=== PATIENT | female | born 1980 | race Caucasian/White ===

== ENCOUNTER 2021-10-12 08:02 | Outpatient (CLI) | payer OTHER, SELFPAY | END 2021-10-12 08:03 | disposition home or self-care (01) | LOC: ANHAUDIO 08:04 | PROVIDERS: Visit Provider Nurse Practitioner Family | DX: H93.19 Tinnitus, unspecified ear (principal); R42 Dizziness and giddiness | CPT/HCPCS: 92540; 92546; 92557; 92567 ==

== ENCOUNTER 2022-01-28 10:59 | Outpatient (RCR) | payer OTHER, SELFPAY | END 2022-01-28 23:59 | disposition home or self-care (01) | LOC: ANHAUDIO 10:59 | DX: Z46.1 Encounter for fitting and adjustment of hearing aid (principal) | CPT/HCPCS: V5160; V5261 ==

== ENCOUNTER 2024-02-21 11:03 | Outpatient (CLI) | payer MEDICAID, SELFPAY ==
--- NOTE | ~2024-02-21 | XR_ITS ---
XR_CERV2-3V_CR DATE: 02/21/2024 11:39 INDICATION: Chronic neck and back pain. Heavy smoker. TECHNIQUE: AP, open-mouth, lateral views COMPARISON: None FINDINGS: There is mild loss of height at the C5-6 interspace. Remaining cervical interspaces are rel atively preserved. C1 and C2 are normally aligned and the odontoid process is intact. No fracture or dislocation or lock ed facet or prevertebral soft tissue swelling is noted. IMPRESSION: Mild degenerative changes C5-6 Reviewed, dictated and finalized at Location [facility]. Reviewed, dictated and finalized at location A.
--- NOTE | ~2024-02-21 | XR_ITS ---
XR lumbar spine 2-3V DATE: 02/21/2024 11:39 INDICATION: Chronic back pain. Heavy smoker. TECHNIQUE: AP, lateral, coned lateral lumbosacral views COMPARISON: None FINDINGS: No fracture or dislocation or bone destruction. Included lower thoracic and lumbar pedicles are intact. Lumbar and lumbosacral interspaces are well preserved. The sacroiliac joints are intact. IMPRESSION: Negative Reviewed, dictated and finalized at location A. IMPRESSION: Negative
--- NOTE | ~2024-02-21 | XR_ITS ---
XR thoracic spine 3V DATE: 02/21/2024 11:38 INDICATION: Chronic back pain. Heavy smoker. TECHNIQUE: AP, lateral, swimmer views COMPARISON: None FINDINGS: There is slight levoscoliosis of the upper thoracic spine. Likely chronic very mild anterior wedge compression fractures of T6, T7 and T9 are noted. No paraspin al soft tissue thickening is evident. The thoracic pedicles are intact. No bone destruction is noted. IMPRESSION: Mild likely chronic mild anterior wedge compression fracture deformities of T6, T7 and T9 Reviewed, dictated and finalized at location A. IMPRESSION: Mild likely chronic mild anterior wedge compression fracture deform ities of T6, T7 and T9
--- NOTE | ~2024-02-21 | XR_ITS ---
XR chest 2V DATE: 02/21/2024 11:39 INDICATION: Chronic back, neck pain. Heavy smoker. TECHNIQUE: PA and lateral views COMPARISON: None FINDINGS: Normal heart size. No hilar or mediastinal enlargement. No pulmonary infiltrate or consolid ation, pleural effusion or pulmonary vascular congestion or pneumothorax. Included skeletal structure s are unremarkable. IMPRESSION: No active cardiopulmonary disease Reviewed, dictated and finalized at location A.
[2024-02-21 12:59] LABS: Hematocrit 44.7 % (37.0-47.0); Hemoglobin 14.5 g/dL (12.0-15.0); Mean Corpuscular HGB Conc 32.4 g/dl (32-36); Mean Corpuscular Hemoglobin 30.3 pg (26-34); Mean Corpuscular Volume 93.5 fl (80-100); Mean Platelet Volume 10.5 fl (7.4-10.4); Platelet Count Result 249 k/mm3 (150-375); Red Blood Count 4.78 M/mm3 (4.2-5.4); Red Cell Distribution Width 13.2 % (11.5-14.5); White Blood Count 6.1 K/mm3 (4.5-10.0)
[2024-02-21 13:03] LABS: Appearance Urine Clear (Clear); Bilirubin Urine Negative (Negative); Blood Urine Negative (Negative); Color Urine Yellow (Yellow); Glucose Urine UA Negative (Negative); Ketones Urine Negative (Negative); Leukocyte Esterase Ur Negative LEU/UL (Negative); Nitrate Urine Negative (Negative); Protein Urine Negative (Negative); Specific Grav Ur 1.022 (1.001-1.035)
[2024-02-21 13:05] LABS: Add Urine Microscopic? NO
[2024-02-21 13:19] LABS: Alanine Aminotransferase 16 U/L (6-35); Albumin Level 3.7 g/dL (3.5-5.1); Alkaline Phosphatase 94 U/L (38-126); Anion Gap 2 mmol/L (4-12); Aspartate Amino Transferase 18 U/L (14-36); Bilirubin,Total 0.3 mg/dL (0.2-1.3); Blood Urea Nitrogen 9 mg/dL (7-17); Calcium 8.6 mg/dL (8.4-10.2); Carbon Dioxide 28 mmol/L (22-30); Chloride 108 mmol/L (98-107); Cholesterol 190 mg/dL (0-200); Estimated Glomerular Filt Rate > 60; Glucose 97 mg/dL (65-110); HDL Direct 42 mg/dL; Sodium 138 mmol/L (137-145); Triglycerides 74 mg/dL (<150)
[2024-02-21 13:22] LABS: Rheumatoid Factor < 12.0 IU/ML (<12)
[2024-02-21 13:30] LABS: Erythrocyte Sedimentation Rate 13 mm/hr (0-20); LDL Cholesterol Direct 141 mg/dL
[2024-02-21 13:35] LABS: Hemoglobin A1C 5.3 % (<5.7)
[2024-02-21 13:40] LABS: Creatinine Urine 176.7 mg/dL
[2024-02-21 13:52] LABS: MALB Creatinine Ratio 4.1 mg/g (0-30); Microalbumin Urine Random 7.3 mg/L (0-16.7)
[2024-02-21 13:54] LABS: Free T4 Free Thyroxine 1.21 ng/mL (0.78-2.19); Vitamin D 25 Hydroxy 29.6 ng/mL
[2024-02-24 00:14] LABS: H pylori, Urea Breath NOT DETECTED (NOT DETECTED)
== END 2024-02-21 11:04 | disposition home or self-care (01) ==
LOC: ANHIMG 11:08
PROVIDERS: PCP Emergency Medicine; Visit Provider Emergency Medicine
DX: K21.00 Gastro-esophageal reflux disease with esophagitis, without bleeding (principal); R10.13 Epigastric pain; F41.9 Anxiety disorder, unspecified; R10.9 Unspecified abdominal pain; M54.2 Cervicalgia; K51.90 Ulcerative colitis, unspecified, without complications; M48.54XA Collapsed vertebra, not elsewhere classified, thoracic region, initial encounter for fracture
CPT/HCPCS: 36415; 71046; 72040; 72072; 72100; 80053; 80061; 81003; 82043; 82306; 83013; 83036; 84439; 84443; 85027; 85652; 86038; 86430

== ENCOUNTER 2024-03-05 14:02 | Outpatient (CLI) | payer MEDICAID, SELFPAY ==
--- NOTE | ~2024-03-05 | MR_ITS ---
EXAMINATION: MR thoracic spine wo/w con DATE: 03/05/2024 15:53 INDICATION: Malignant neoplasm of the left kidney with chronic back pain TECHNIQUE: Magnetic resonance imaging (MRI) of the thoracic spine was performed without and with 17 m L Multihance intravenous contrast. Sagittal localizer T1-weighted FSE of the cervicothoracic spine wa s obtained. Thoracic spine sequences included sagittal T2-weighted FSE, sagittal T1-weighted SE, Sagi ttal T2-weighted FS FSE, and axial T2-weighted FSE. COMPARISON: None FINDINGS: Alignment is normal.Chronic compression fractures with mild anterior wedging at T6,T9 and minimally a t T7. 8 mm T1 and T2 hyperintense hemangioma at the right posterior aspect of the T2 vertebral body. Otherwise normal marrow signal. Mild disc height loss at T3-T4 through T5-T6 and at T8-T9. Discs do n ot extend beyond the endplate margins. There is a T2 hyperintense, T1 hypointense and 20 intravenousl y enhancing extradural lesion along the left posterior side of the central canal which extends 4.0 cm craniocaudally from the level of the inferior pedicle margin at T4 to the inferior pedicle margin of T6 and which measures up to 1.9 x 0.5 cm in maximal orthogonal dimensions. No surrounding inflammato ry changes. There is normal spinal cord signal with no abnormally enhancing cord lesions. The conus t erminates at L1-L2. A few nonenhancing likely cysts in the partially visualized bilateral kidneys. IMPRESSION: 1. Mild thoracic spondylosis with chronic T6, T7 and T9 compression fractures. 2. Nonspecific enhancing extradural lesion at the left posterior central canal at T4-T6 contributing to mild central canal stenosis. Most likely differential would include extradural spinal cavernous ma lformation, epidural angiolipoma, spinal meningioma, spinal schwannoma lymphoma and metastatic diseas e. Reviewed, dictated and finalized at location B. IMPRESSION: 1. Mild thoracic spondylosis with chronic T6, T7 and T9 compression fractures. 2. Nonspecific enhancing extradural lesion at the left posterior central canal at T4-T6 contributing to mild central canal stenosis. Most likely differential would include extradural spinal cavernous malformation, epidural angiolipoma, s lucas meningioma, spinal schwannoma lymphoma and metastatic disease.
== END 2024-03-05 14:03 | disposition home or self-care (01) ==
PROVIDERS: PCP Emergency Medicine; Visit Provider Internal Medicine Hematology & Oncology
DX: C64.2 Malignant neoplasm of left kidney, except renal pelvis (principal); M43.04 Spondylolysis, thoracic region; S22.060A Wedge compression fracture of T7-T8 vertebra, initial encounter for closed fracture; X58.XXXA Exposure to other specified factors, initial encounter
CPT/HCPCS: 72157; A9577

== ENCOUNTER 2024-03-09 07:20 | Outpatient (CLI) | payer MEDICAID, SELFPAY ==
--- NOTE | ~2024-03-09 | PE_ITS ---
EXAMINATION: PET skull to mid thigh DATE: 03/09/2024 09:30 INDICATION: Malignant neoplasm of the left kidney. Spine mass. TECHNIQUE: Blood glucose level was 100 mg/dL. 9.462 mCi of 18-fluorodeoxyglucose (18-FDG) was adminis tered i.v. Low dose computed tomography (CT) images were acquired from the base of the brain to the p roximal thighs for attenuation correction and anatomic localization. Automated exposure control was e mployed. Dose-length product (DLP) was 1181 mGy-cm. Positron emission tomography (PET) images were ac quired in the same distribution. COMPARISON: Thoracic spine MRI 03/05/2024 FINDINGS: Head/neck: There are no pathologically enlarged lymph nodes. Chest: There is a pneumatocele in right lower lobe. No pleural effusion. The heart size is normal. No pericardial effusion. There are no pathologically enlarged lymph nodes. There is no abnormal activit y in the area of the epidural enhancement seen by MRI from T4 to T6. Abdomen/pelvis/proximal thighs: The liver, spleen, pancreas, adrenal glands, and right kidney are nor mal. There are changes of partial left nephrectomy. There are no dilated loops of bowel. The appendix is normal. There is diverticulosis of the colon without evidence of diverticulitis. There are no pat hologically enlarged lymph nodes. There is no free intraperitoneal fluid. IMPRESSION: 1. No PET/CT abnormality in the area of the epidural enhancement seen by MRI from T4 to T6. Reviewed, dictated and finalized at location E. IMPRESSION: 1. No PET/CT abnormality in the area of the epidural enhancement seen by MRI fr om T4 to T6.
[2024-03-09 07:58] LABS: Glucose Point of Care 100 mg/dl (65-105)
== END 2024-03-09 07:21 | disposition home or self-care (01) ==
PROVIDERS: PCP Emergency Medicine; Visit Provider Internal Medicine Hematology & Oncology
DX: C64.2 Malignant neoplasm of left kidney, except renal pelvis (principal)
CPT/HCPCS: 78815; A9552

== ENCOUNTER 2024-04-13 13:32 | Outpatient (CLI) | payer MEDICAID, SELFPAY ==
[2024-04-13 13:46] LABS: Basophils Percent Auto 0.4 % (0.2-1.2); Eosinophils Absolute Auto 0.3 K/mm3 (0-0.3); Eosinophils Percent Auto 4.3 % (0-4.4); Hematocrit 38.7 % (37.0-47.0); Hemoglobin 12.4 g/dL (12.0-15.0); Immature Granulocyte Absolute 0.01 K/mm3 (0.00-0.031); Immature Granulocyte Percent A 0.1 % (0-0.5); Lymphocytes Absolute Auto 2.32 K/mm3 (0.9-3.2); Lymphocytes Percent Auto 34.1 % (18.3-44.2); Mean Corpuscular Hemoglobin 30.4 pg (26-34); Mean Corpuscular Volume 94.9 fl (80-100); Mean Platelet Volume 9.6 fl (7.4-10.4); Monocytes Absolute Auto 0.5 K/mm3 (0.1-0.6); Neutrophils Absolute Auto 3.7 K/mm3 (1.3-6.7); Neutrophils Percent Auto 54.1 % (45.5-73.1); Platelet Count Result 243 k/mm3 (150-375); Red Blood Count 4.08 M/mm3 (4.2-5.4); Red Cell Distribution Width 13.4 % (11.5-14.5); White Blood Count 6.8 K/mm3 (4.5-10.0)
[2024-04-13 16:35] LABS: Iron 60 ug/dL (37-170)
[2024-04-13 16:40] LABS: Anion Gap 4 mmol/L (4-12); Blood Urea Nitrogen 14 mg/dL (7-17); Calcium 9.1 mg/dL (8.4-10.2); Carbon Dioxide 27 mmol/L (22-30); Chloride 106 mmol/L (98-107); Estimated Glomerular Filt Rate > 60; Glucose 112 mg/dL (65-110); Sodium 137 mmol/L (137-145)
[2024-04-13 16:46] LABS: Percent Iron Saturation 17 % (20-50)
== END 2024-04-13 13:33 | disposition home or self-care (01) ==
LOC: ANHLAB 13:34
PROVIDERS: PCP Emergency Medicine; Visit Provider Internal Medicine Hematology & Oncology
DX: D64.9 Anemia, unspecified (principal)
CPT/HCPCS: 36415; 80048; 82607; 82728; 83540; 83550; 85025

== ENCOUNTER 2025-07-01 14:04 | Outpatient (CLI) | payer OTHER, SELFPAY ==
--- OUTSIDE RECORDS SUMMARY | 2025-07-01 14:07 | XMS_ITS | Clinical Summary ---
Author Organization [facility] Address [address] [place] [address] Phone Care Team Providers Care Cane Feeder Name Role Phone Lily Zapien MD Unavailable Allergies Active Allergy Reactions Criticality Noted Date Comments Levofloxacin Swelling 06/20/2016 Medications gabapentin (NEURONTIN) 100 MG Capsule Take by mouth. 7 Active sucralfate (CARAFATE) 1 GM/10ML Suspension Take by mouth. 7 Active ondansetron (ZOFRAN-ODT) 4 MG TABLET DISPERSIBLE 7 Active citalopram (CELEXA) 10 MG TabletIndicatio ns:Depression, unspecified depression type Take 1 Tab by mouth daily. 90 Tab 2 8 Active Additional Information Patient not taking.Reported on 11/05/2018 metroNIDAZOLE (METROGEL VAGINAL) 0.75 % Gel 1 Applicatorful by Vaginal route nightly. 70 g 8 Active Additional Information Patient not taking.Reported on 11/05/2018 ALPRAZolam (XANAX) 1 MG TabletIndicatio ns:Anxiety Take 1 Tab by mouth 3 times daily as needed for Anxiety. 40 Tab 8 Active HYDROcodone-arvind taminophen (NORCO) 10-325 MG TabletIndicatio ns:Fibromyalgia Take 1 Tab by mouth 2 times daily as needed for Moderate or more severe pain. 10 Tab 8 Active Additional Information Patient not taking.Reported on 11/05/2018 venlafaxine (EFFEXOR-XR) 75 MG CAPSULE SR 24 HR Take 1 Cap by mouth daily. 90 Cap 3 8 Active Active Problems Problem Noted Date Diagnosed Date Chronic narcotic use 05/15/2018 Fibromyalgia Anxiety Depression H/O renal cell cancer Immunizations Immunization Administration Dates Next Due Influenza Vaccine, Quadrivalent, PF 11/03/2018 Influenza, Injectable, Mdck, Preservative Free 0 12/12/2013 Social History Tobacco Use Types Packs/Day Years Used Date Smoking Tobacco: Every Day Cigarettes Smokeless Tobacco: Current Tobacco Cessation:Ready to Q uit: No; Counseling Given: Yes Alcohol Use Standard Drinks/Week Comments No 0 (1 standard drink = 0.6 oz pur e alcohol) PHQ-2 Answer Date Recorded PHQ-2 Score 0 08/10/2019 Sexually Active Control Partners Comments Yes Comments No Sex and Gender Information Value Date Recorded Sex Assigned at Not on file Legal Sex Female 9:51 AM AD OPERATIONS SPECIALIST Gender Identity Not on file Sexual Orientation Not on file Last Filed Vital Signs Vital Sign Reading Time Taken Comments Blood Pressure 120/74 11/03/2018 5:48 PM AD OPERATIONS SPECIALIST Pulse 109 11/03/2018 5:48 PM AD OPERATIONS SPECIALIST Temperature 36.6 C (97.9 F) 11/03/2018 5:48 PM AD OPERATIONS SPECIALIST Respiratory Rate 18 11/03/2018 5:48 PM AD OPERATIONS SPECIALIST Oxygen Saturation 98% 11/03/2018 5:48 PM AD OPERATIONS SPECIALIST Inhaled Oxygen Concentration - - Weight 82.6 kg (182 lb) 11/03/2018 5:48 PM AD OPERATIONS SPECIALIST Height 154.9 cm (5' 1) 11/03/2018 5:48 PM AD OPERATIONS SPECIALIST Body Mass Index 34.39 11/03/2018 5:48 PM AD OPERATIONS SPECIALIST Plan of Treatment Health Maintenance Due Date Last Done Comments Hepatitis C Virus (HCV) Screening 1980 Mammogram 1980 TdaP Immunization 1980 Hepatitis B Immunization (1 of 3 - 19+ 3-dose series) 1998 Human Papillomavirus (HPV) Immunization (1 - 3-dose SCDM series) 2006 Discussion re Starting/Frequency of Mammograms 2019 SARS-COV-2 Immunization (2023- season) 2024 Cologuard 2024 Colonoscopy 2024 Colorectal Cancer Screening 2024 Immunochemical Fecal Occult Blood 2024 Influenza Immunization (#1) 07/25/202510/24, 12/12/2013 Respiratory Syncytial Virus (RSV) Immunization (Adult) (1 - 1-dose 75+ series) 2054 Meningococcal Immunization (ACWY) Aged Out No longer eligible b ased on patient's age to complete this topic Pneumococcal Immunization Combined Aged Out No longer eligible b ased on patient's age to complete this topic Rotavirus Immunization Aged Out No lo nger eligible based on patient's age to complete this topic Insurance MEDICAID [place] Care Teams Cane Feeder Relationship Specialty Start Date End Date Lily Zapien MD [address] [facility] [address] [place], [place] [phone] Obstetrics & Gynecology 10/09/17
--- OUTSIDE RECORDS SUMMARY | 2025-07-01 14:07 | XMS_ITS | Clinical Summary ---
Author Organization [facility] Address [address] [place] [address] Care Team Providers Care Cross Tie Turner Name Role Phone J Carlos Hirsch MD Primary Care Provider [phone] Allergies Active Allergy Reactions Criticality Noted Date Comments Levofloxacin Swelling Low 06/20/2016 Medications ALPRAZolam (XANAX) 1 mg tablet Take 1 mg by mouth nightly as needed for Anxiety. Active dextroamphetami ne-amphetamine (ADDERALL) 20 mg tablet Take 20 mg by mouth daily. Active atorvastatin (LIPITOR) 20 mg tablet Take 20 mg by mouth daily. Active Cholecalciferol , Vitamin D3, 50 mcg (2,000 unit) Capsule Take by mouth. Active omeprazole (PriLOSEC) 40 mg Capsule, Delayed Release(E.C.) Take 40 mg by mouth daily. Active Active Problems No known active problems Encounters Date Type Department Care Team Description 04/14/2025 External Device Data [facility] ABSTRACTION Provider, Abstract 04/13/2025 External Device Data [facility]STRA[facility] Provider, Abstract 04/12/2025 External Device Data [facility]STRA[facility] Provider, Abstract from Last 3 Months Family History Medical History Relation Name Comments Breast Cancer Mother Diabetes Mother Relation Name Status Comments Brother Alive Daughter Alive Father Alive Mother Alive Son Alive Social History Tobacco Use Types Packs/Day Years Used Date Smoking Tobacco: Every Day Cigarettes 1 31.6 Started: 1993 Smokeless Tobacco: Never Tobacco Cessation:Ready to Q uit: Not Asked; Counseling Given: Not Answered Alcohol Use Standard Drinks/Week Comments Yes 0 (1 standard drink = 0.6 oz pur e alcohol) occasional Comments Unknown Sex and Gender Information Value Date Recorded Sex Assigned at Not on file Legal Sex Female 5:24 PM [employer] Gender Identity Not on file Sexual Orientation Not on file Last Filed Vital Signs Vital Sign Reading Time Taken Comments Blood Pressure 121/86 04/13/2024 1:02 PM CDT Pulse 89 04/13/2024 1:02 PM CDT Temperature 36.6 C (97.8 F) 04/13/2024 1:02 PM CDT Respiratory Rate 14 04/13/2024 1:02 PM CDT Oxygen Saturation 95% 04/13/2024 1:02 PM CDT Inhaled Oxygen Concentration - - Weight 88.9 kg (196 lb) 04/13/2024 1:02 PM CDT Height 156.2 cm (5' 1.5) 03/01/2024 10:36 AM CD T Body Mass Index 36.43 03/01/2024 10:36 AM CDT Plan of Treatment Health Maintenance Due Date Last Done Comments HPV VACCINES (1 - 3-dose series) 1994 DTAP/TDAP/TD VACCINES (1 - Tdap) 1998 HEPATITIS B VACCINES (1 of 3 - 19+ 3-dose series) 1998 COLORECTAL SCREENING 2024 Colorectal Cancer Screening 2024 FIT-DNA Q 3 years 2024 FIT/FOBT Q 1 year 2024 Flex Sig/CT Colonography Q 5 years 2024 BREAST CANCER SCREENING 02/11/2025 02/12/20 24, 02/12/2024, 02/10/2023, Additional history exists INFLUENZA VACCINE (#1) 2025 11/03/2018, 2013 Insurance [employer] [place] Care Teams Cross Tie Turner Relationship Specialty Start Date End Date J Carlos Hirsch MD [address] [place] [id number] PCP - General Family Practice 02/27/24
--- OUTSIDE RECORDS SUMMARY | 2025-07-01 14:07 | XMS_ITS | Continuity of Care Document ---
Author Organization [facility] Address [address] [place] [address] Phone Care Team Providers Care Audograph Operator Name Role Phone Chema Yuan MD Unavailable Unavailable Allergies, Adverse Reactions, Alerts Substance Reaction Status Criticality levofloxacin Active No Information Medications Medication Instructions Dosage Effective Dates (start - stop) Status Comments Grover 10 mg-325 mg tablet take 1 by Oral route 3 times every day 1 - Active avoid driving or operate machines Xanax 1 mg tablet take 1 tablet [...] Providers Copied on Encounter OFFICE/OUTPA TIENT VISIT, [facility], [address] [place], [place], [address], [place] tel:[phone] [facility] chronic pain (chief complaint)an xiety1 (chief complaint) Chronic pain syndromeGeneraliz ed anxiety disorder 6 Kwabena Bear. [address] [place], [address] , [place]. tel:[phone] Referring Provider: Chema Yuan, [address], [place], [place], [address]. tel:[phone] OFFICE/OUTPA TIENT VISIT, [facility], [address] [place], [place], [address], [place] tel:[phone] [facility] anxiety1 (chief complaint)ab d pain (chief complaint) Abdominal painGeneralized anxiety disorder Kash-0 6 Kwabena Bear. [address], [place], [place], [address] , [place]. tel:[phone] Referring Provider: Chema Yuan, [address], [place], [place], [address]. tel:[phone] OFFICE/OUTPA TIENT VISIT, [facility], [address], [place], [place], [address], [place] tel:[phone] [facility] anxiety1 (chief complaint)ch ronic pain (chief complaint)HL P (chief complaint)vi tamin D (chief complaint) Generalized anxiety disorderChronic pain syndromeHyperlipi demiaVitamin D deficiency, unspecified 6 Kwabena Bear. [address], [place], [place], [address] , [place]. tel:[phone] Referring Provider: Chema Yuan, [address], [place], [place], [address]. tel:[phone] OFFICE/OUTPA TIENT VISIT, [facility], [address], [place], [place], [address], [place] tel:[phone] [facility] anxiety1 (chief complaint)AB d pain (chief complaint) Chronic pain syndromeGeneraliz ed anxiety disorder Feb-0 6 Kwabena Bear. [address], [place], [address] , [place]. [phone] Referring Provider: Chema Yuan [address], [place], [place], [address]. tel:[phone] OFFICE/OUTPA TIENT VISIT, [facility], [address], [place], [place], [address], [place] tel:[phone] [facility] abd pain (chief complaint)an xiety1 (chief complaint) Abdominal painGeneralized anxiety disorder Mar-0 7-201 6 Kwabena Bear. [address], [place], [place], [address] , [place]. [phone] Referring Provider: Roger Knox [address], [place], [place], [address]. tel:[phone] OFFICE/OUTPA TIENT VISIT, EST [facility], [address], [place], [place], [address], [place] tel:[phone] [facility] vaginal discharge1 (chief complaint)ch roinc pain (chief complaint)an xiety1 (chief complaint) Other specified noninflammatory disorders of vaginaGeneralized anxiety disorderChronic pain syndrome 6 Kwabena Bear. [address], [place], [place], [address] , [place]. [phone] Referring Provider: Roger Knox [address], [place], [place], [address]. tel:[phone] PREV VISIT, EST, AGE 18-39 [facility], [address], [place], [place], [address], [place] tel:[phone] [facility] Physical (chief complaint) Encntr for general adult medical exam w/o abnormal findings 6 Kwabena Bear. [address], [place], [place], [address] , [place]. tel:[phone] Referring Provider: Roger [address], [place], [place], [address]. tel:[phone] OFFICE/OUTPA TIENT VISIT, EST [facility], [address], [place], [place], [address], [place] tel:[phone] [facility] anxiety1 (chief complaint)ab d pain1 (chief complaint) Abdominal painGeneralized anxiety disorderAnxiolyti c dependence 5 Kwabena Bear. [address], [place], [address] , [place]. [phone] Referring Provider: Chema Yuan, [address], [place], [place], [address]. tel:[phone] OFFICE/OUTPA TIENT VISIT, [facility], [address], [place], [place], [address], [place] tel:[phone] [facility] anxiety1 (chief complaint)ab d pain (chief complaint) Generalized Anxiety DisorderGeneraliz ed abdominal pain Nov 0-201 5 Kwabena Bear. [address], [place], [place], [address] , [place]. tel:[phone] Referring Provider: Roger [address], [place], [place], [address]. tel:[phone] OFFICE/OUTPA TIENT VISIT, [facility], [address], [place], [place], [address], [place] tel:[phone] [facility] anxiety1 (chief complaint)ab dominal pain1 (chief complaint) Generalized anxiety disorderGeneraliz ed abdominal pain 4-201 5 Kwabena Bear. [address], [place], [place], [address] , [place]. tel:[phone] Referring Provider: Roger [address], [place], [place], [address]. tel:[phone] OFFICE/OUTPA TIENT VISIT, [facility], [address], [place], [place], [address], [place] tel:[phone] [facility] sinusitis (chief complaint)si nusitis (chief complaint)an xiety (chief complaint)ab dominal pain (chief complaint) Acute sinusitisGenerali zed Anxiety DisorderAbdominal pain, unspecified site 6 5 Kwabena Bear. [address], [place], [place], [address] , [place]. tel:[phone] Referring Provider: Roger [address], [place], [place], [address]. tel:[phone] OFFICE/OUTPA TIENT VISIT, [facility], [address], [place], [address], [place] tel:[phone] [facility] pelvic pain (chief complaint)ab dominal pain (chief complaint)ab domen (chief complaint)pe lvic fluid (chief complaint) Abdominal painOvarian cystEnteritis Kash-2 5 Kwabena Bear. [address], [place], [place], [address] , [place]. tel:[phone] Referring Provider: Roger [address], [place], [place], [address]. tel:[phone] OFFICE/OUTPA TIENT VISIT, [facility], [address], [place], [place], [address], [place] tel:[phone] [facility] abdominal pain (chief complaint)HL P (chief complaint)sk in itching (chief complaint) Abdominal PainOpioid type dependence, unspecified useRash and other nonspecific skin eruptionOther and unspecified hyperlipidemia Jan-3 5 Kwabena Bear. [address], [place], [place], [address] , [place]. tel:[phone] Referring Provider: [address], [place], [place], [address]. tel:[phone] OFFICE/OUTPA TIENT VISIT, [facility], [address], [place], [place], [address], [place] tel:[phone] [facility] chronic pain (chief complaint)an xiety (chief complaint)va ginal yesats (chief complaint) Abdominal PainOpioid type dependence, unspecified useGeneralized anxiety disorderLeukorrhe a, not specified as infective Jan-0 5 Kwabena Bear. [address], [place], [address] , [place]. tel:[phone] Referring Provider: Roger Knox [address], [place], [place], [address]. tel:[phone] OFFICE/OUTPA TIENT VISIT, [facility], [address], [place], [place], [address], [place] tel:[phone] [facility] abdominal pain (chief complaint)br east nodule (chief complaint)HL P (chief complaint) Dietary surveillance and counselingAbdomin al PainOther and unspecified hyperlipidemia 5 Kwabena Bear. [address], [place], [place], [address] , [place]. tel:[phone] Referring Provider: Roger [address], [place], [place], [address]. tel:[phone] OFFICE/OUTPA TIENT VISIT, EST [facility], [address], [place], [address], [place] tel:[phone] [facility] sinus (chief complaint)ab dominal pain (chief complaint)an xiety (chief complaint) Dietary surveillance and counselingAbdomin al PainGeneralized anxiety disorderUnspecifi ed sinusitis (chronic) 5 Kwabena Bear. [address], [place], [place], [address] , [place]. tel:[phone] Referring Provider: Roger Knox [address], [place], [place], [address]. tel:[phone] PREV VISIT, EST, AGE 18-39 [facility], [address], [place], [place], [address], [place] tel:[phone] [facility] Physical (chief complaint) Dietary surveillance and counselingRoutine Medical ExamRoutine Medical Exam 4 Kwabena Nieto [address], [place], [address] , [place]. tel:[phone] Referring Provider: Roger [address], [place], [place], [address]. tel:[phone] OFFICE/OUTPA TIENT VISIT, EST [facility], [address], [place], [address], [place] tel:[phone] [facility] abdominal pain (chief complaint)le g numbness (chief complaint)HL P (chief complaint) Dietary surveillance and counselingAbdomin al PainDisturbance of skin sensationOther and unspecified hyperlipidemia 4 Kwabena Bear. [address], [place], [place], [address] , [place]. tel:[phone] Referring Provider: Roger Knox [facility] A, [place], [place], [address]. tel:[phone] OFFICE/OUTPA TIENT VISIT, [facility], [address] [place] [place], [address], [place] tel:[phone] [facility] abdominal pain (chief complaint)ba ck pain (chief complaint)nu mnbess (chief complaint)an xiety (chief complaint)he adache (chief complaint)ra sh (chief complaint) Dietary surveillance and counselingAbdomin al PainGeneralized anxiety disorderHeadacheD isturbance of skin sensation 4 Kwabena Bear. [address] [facility] [address], [place], [place], [address] , [place]. tel:[phone] Referring Provider: Roger Knox [facility] A, [place], [place], [address]. tel:[phone] OFFICE/OUTPA TIENT VISIT, [facility], [address] [place], [address], [place] tel:[phone] [facility] abdominal pain (chief complaint)nu mbness (chief complaint) Dietary surveillance and counselingAbdomin al PainDisturbance of skin sensationLumbago 4 Kwabena Bear. [address], [place], [address] , [place]. tel:[phone] Referring Provider: Roger Knox [facility] A, [place], [place], [address]. tel:[phone] OFFICE/OUTPA TIENT VISIT, [facility], [address] [place], [address], [place] tel:[phone] [facility] numbness (chief complaint)ba ck pain (chief complaint)ab dominal pain (chief complaint)re nal CA (chief complaint) LumbagoDisturbanc e of skin sensationAbdomina l PainDietary surveillance and counseling 4 Kwabena Bear. [address], [place], [place], [address] , [place]. tel:[phone] Referring Provider: Roger Knox [address], [place], [place], [address]. tel:[phone] OFFICE/OUTPA TIENT VISIT, [facility], [address], [place], [place], [address], [place] tel:[phone] [facility] abdominal pain (chief complaint)nu mbness (chief complaint) Dietary surveillance and counselingDietary surveillance and counselingAbdomin al PainDisturbance of skin sensation 4 Kwabena Bear. [address], [place], [place], [address] , [place]. tel:[phone] Referring Provider: Roger Knox [address], [place], [place], [address]. tel:[phone] OFFICE/OUTPA TIENT VISIT, [facility], [address], [place], [place], [address], [place] tel:[phone] [facility] abdominal pain (chief complaint)Le ft upper leg numbness (chief complaint) Dietary surveillance and counselingAbdomin al PainDisturbance of skin sensation 4 Kwabena Bear. [address], [place], [place], [address] , [place]. tel:[phone] Referring Provider: Roger [address], [place], [place], [address]. tel:[phone] OFFICE/OUTPA TIENT VISIT, [facility], [address], [place], [place], [address], [place] tel:[phone] [facility] abdominal pain (chief complaint) Abdominal PainAcute pancreatitis 4 Kwabena Bear. [address], [place], [place], [address] , [place]. tel:[phone] Referring Provider: Roger Knox [address], [place], [place], [address]. tel:[phone] OFFICE/OUTPA TIENT VISIT, [facility], [address], [place], [place], [address], [place] tel:[phone] [facility] allergy (chief complaint)ab dominal pain (chief complaint)ra sh (chief complaint) Dietary surveillance and counselingAllergi c rhinitis, cause unspecifiedAbdomi nal PainRash and other nonspecific skin eruption March-0 4 Kwabena Bear. [address], [place], [place], [address] , [place]. tel:[phone] Referring Provider: Roger Knox [address], [place], [place], [address]. tel:[phone] OFFICE/OUTPA TIENT VISIT, [facility], [address], [place], [place], [address], [place] tel:[phone] [facility] abdominal pain (chief complaint)ra sh (chief complaint)br east lump (chief complaint) Dietary surveillance and counselingRash and other nonspecific skin eruptionLump or mass in breastAbdominal Pain 4 Kwabena Bear. [address], [place], [place], [address] , [place]. [phone] Referring Provider: Roger Knox [address], [place], [place], [address]. tel:[phone] OFFICE/OUTPA TIENT VISIT, [facility], [address], [place], [place], [address], [place] tel:[phone] [facility] breast nodule (chief complaint)ab dominal pain (chief complaint)br east rash (chief complaint) Dietary surveillance and counselingLump or mass in breastRash and other nonspecific skin eruptionAbdominal Pain 4 Kwabena [address], [place], [place], [address] , [place]. tel:[phone] Referring Provider: Roger [address], [place], [place], [address]. tel:[phone] OFFICE/OUTPA TIENT VISIT, [facility], [address], [place], [place], [address], [place] tel:[phone] [facility] abdominal pain (chief complaint)an xiety (chief complaint)to bacco (chief complaint) Dietary surveillance and counselingAbdomin al PainGeneralized anxiety disorderTobacco Abuse 4 Kwabena Bear. [address], [place], [place], [address] , [place]. [phone] Referring Provider: Roger [address], [place], [place], [address]. tel:[phone] OFFICE/OUTPA TIENT VISIT, [facility], [address], [place], [place], [address], [place] tel:[phone] [facility] hematuria (chief complaint)ab dominal pain (chief complaint)to bacco (chief complaint)an xiety (chief complaint) Dietary surveillance and counselingHEMATUR IA NOSAbdominal PainGeneralized anxiety disorder 4 Kwabena Bear. [address], [place], [address] , [place]. [phone] Referring Provider: [address], [place], [place], [address]. tel:[phone] OFFICE/OUTPA TIENT VISIT, [facility], [address], [place], [place], [address], [place] tel:[phone] [facility] sinus (chief complaint)ab dominal pain (chief complaint) Dietary surveillance and counselingSinusit is, AcuteAbdominal Pain 3 Kwabena Bear. [address], [place], [address] , [place]. [phone] Referring Provider: Roger Knox [address], [place], [place], [address]. tel:[phone] PREV VISIT, EST, AGE 18-39 [facility], [address], [place], [address], [place] tel:[phone] [facility] PHysical (chief complaint) Routine Medical ExamRoutine Medical Exam 3 Kwabena Bear. [address], [place], [place], [address] , [place]. tel:[phone] Referring Provider: Roger Knox [address], [place], [place], [address]. tel:[phone] OFFICE/OUTPA TIENT VISIT, [facility], [address], [place], [place], [address], [place] tel:[phone] [facility] abdominal pain (chief complaint)GE RD (chief complaint) Dietary surveillance and counselingAbdomin al PainGERD 3 Kwabena Nieto [address], [place], [place], [address] , [place]. [phone] Referring Provider: Roger Knox [address], [place], [place], [address]. tel:[phone] OFFICE/OUTPA TIENT VISIT, EST [facility], [address], [place], [place], [address], [place] tel:[phone] [facility] UTI (chief complaint)ab dominal pain (chief complaint) Dietary surveillance and counselingAbdomin al PainUrinary Tract Infection 3 Kwabena Bear. [address], [place], [place], [address] , [place]. [phone] Referring Provider: Roger Knox [address], [place], [place], [address]. tel:[phone] OFFICE/OUTPA TIENT VISIT, EST [facility], [address], [place], [place], [address], [place] tel:[phone] [facility] abnormal mammogram (chief complaint)ab dominal pain (chief complaint)GE RD (chief complaint) Abdominal PainUnspecified abnormal mammogramGERD 3 Kwabena Bear. [address], [place], [place], [address] , [place]. tel:[phone] Referring Provider: Roger [address], [place], [place], [address]. tel:[phone] OFFICE/OUTPA TIENT VISIT, [facility], [address], [place], [place], [address], [place] tel:[phone] [facility] abdominal pain (chief complaint) Abdominal Pain 3 Kwabena Bear. [address], [place], [place], [address] , [place]. tel:[phone] Referring Provider: Roger Knox [address], [place], [place], [address]. tel:[phone] OFFICE/OUTPA TIENT VISIT, [facility], [address], [place], [place], [address], [place] tel:[phone] [facility] Headache (chief complaint)ab dominal pain (chief complaint)br east cyst (chief complaint) Abdominal PainHeadacheLump or mass in breast 3 Kwabena Bear. [address], [place], [address] , [place]. [phone] Referring Provider: Roger [address], [place], [place], [address]. tel:[phone] OFFICE/OUTPA TIENT VISIT, [facility], [address], [place], [place], [address], [place] tel:[phone] [facility] headache (chief complaint)ab dominal pain (chief complaint)br east lump (chief complaint) HeadacheAbdominal PainGeneralized anxiety disorderLump or mass in breast 3 Kwabena Bear. [address], [place], [place], [address] , [place]. [phone] Referring Provider: Roger Knox [address], [place], [place], [address]. tel:[phone] OFFICE/OUTPA TIENT VISIT, [facility], [address], [place], [place], [address], [place] tel:[phone] [facility] abdominal pain (chief complaint)Pa lpitation (chief complaint)He adache (chief complaint) Abdominal PainGeneralized anxiety disorderHeadacheP alpitations 3 Kwabena Bear. [address], [place], [address] , [place]. tel:[phone] Referring Provider: Chema Yuan, [address], [place], [place], [address]. tel:[phone] OFFICE/OUTPA TIENT VISIT, [facility], [address], [place], [place], [address], [place] tel:[phone] [facility] Headache (chief complaint)pa lpitations (chief complaint)an xiety (chief complaint) Abdominal PainGeneralized anxiety disorderPalpitati ons 3 Kwabena Bear. [address], [place], [place], [address] , [place]. tel:[phone] Referring Provider: Chema Yuan, [address], [place], [place], [address]. tel:[phone] OFFICE/OUTPA TIENT VISIT, [facility], [address], [place], [place], [address], [place] tel:[phone] [facility] palpitation (chief complaint) Palpitations 3 Kwabena Bear. [address], [place], [place], [address] , [place]. tel:[phone] Referring Provider: Chema Yuan, [address], [place], [place], [address]. tel:[phone] OFFICE/OUTPA TIENT VISIT, [facility], [address], [place], [address], [place] tel:[phone] [facility] abdominal pain (chief complaint)He adache (chief complaint) Abdominal PainHeadache 3 Kwabena Bear. [address], [place], [address] , [place]. tel:[phone] Referring Provider: Roger Knox [address], [place], [place], [address]. tel:[phone] OFFICE/OUTPA TIENT VISIT, [facility], [address], [place], [place], [address], [place] tel:[phone] [facility] abdominal pain (chief complaint)so re throat (chief complaint) Acute upper respiratory infections of other multiple sitesAbdominal Pain Jan-0 3 Kwabena Bear. [address], [place], [place], [address] , [place]. tel:[phone] Referring Provider: Chema Yuan, [address], [place], [place], [address]. tel:[phone] OFFICE/OUTPA TIENT VISIT, [facility], [address], [place], [place], [address], [place] tel:[phone] [facility] UTI (chief complaint)Si nus (chief complaint)ab dominal pain (chief complaint)an xiety (chief complaint) Urinary Tract InfectionAbdomina l PainAcute maxillary sinusitisGenerali zed anxiety disorder 3 Kwabena Bear. [address], [place], [place], [address] , [place]. tel:[phone] Referring Provider: Roger Knox [address], [place], [place], [address]. tel:[phone] OFFICE/OUTPA TIENT VISIT, [facility], [address], [place], [place], [address], [place] tel:[phone] [facility] abdominal pain (chief complaint)si nus infection (chief complaint)an xiety (chief complaint) Abdominal PainAcute maxillary sinusitisGenerali zed anxiety disorder 3 Kwabena Bear. [address], [place], [address] , [place]. tel:[phone] Referring Provider: Roger Knox [address], [place], [place], [address]. tel:[phone] OFFICE/OUTPA TIENT VISIT, [facility], [address], [place], [place], [address], [place] [phone] [facility] abdominal pain (chief complaint) Abdominal Pain 2 Kwabena Bear. [address], [place], [address] , [place]. [phone] Referring Provider: Roger Knox [address], [place], [place], [address]. tel:[phone] OFFICE/OUTPA TIENT VISIT, [facility], [address], [place], [address], [place] [phone] [facility] abdominal pain (chief complaint) Dietary surveillance and counselingAbdomin al Pain 2 Kwabena Bear. [address], [place], [place], [address] , [place]. [phone] Referring Provider: Roger Knox [address], [place], [place], [address]. tel:[phone] OFFICE/OUTPA TIENT VISIT, [facility], [address], [place], [place], [address], [place] [phone] [facility] abdominal pain (chief complaint)hy perlipidemia (chief complaint) Dietary surveillance and counselingColitis , enteritis, and gastroenteritis of presumed infectious originOther and unspecified hyperlipidemiaNeo plasm of uncertain behavior of adrenal glandCongenital single renal cyst 2 Kwabena Bear. [address], [place], [address] , [place]. [phone] Referring Provider: [address], [place], [place], [id number]. [phone] Family History Family Member Type Diagnosis Age [...] Related to Lump or mass in breast Dietary counseling Related to Di etary surveillance counseling Decrease caloric intake Related to Dietary surveillance counseling Dietary counseling Related to Di etary surveillance counseling Decrease caloric intake Related to Dietary surveillance counseling Assessments Type Assessment Date assessment Chronic pain syndrome 6 assessment Generalized anxiety disorder Apr Mental Status Date Cognitive Assessment Orientation - [place] ed to time, place, person, situation.
--- OUTSIDE RECORDS SUMMARY | 2025-07-01 14:07 | XMS_ITS | Clinical Summary ---
Author Organization [facility] Address [address] [place] [address] Care Team Providers Care Slide Attendant Name Role Phone Yoel Watson MD Primary Care Provider [phone] Source Comments [facility],non-owned Affiliates and Associated Physician Practices is amultiple site organization consisting of ambulatory clinics and hospital sitesin [place], [place], [place] and [place]. This disclosure is being madepursuant to the Care Everywhere program and may not contain all information available regarding this patient. Last updated 18.[employer] [facility] Allergies Active Allergy Reactions Criticality Noted Date Comments Levofloxacin Swelling 06/20/2016 Medications * This document contains information received from the source organization and may not represent a complete record from that organization. * Be aware that medications may not be up to date on this document. Alwaysverify current medications with the patient. pantoprazole EC (Protonix) 40 MG tablet Take 1 (one) tablet by mouth once daily Active Cholecalcifero l 1.25 MG (12855 UT) Take 1,000 Units by mouth every 7 days Active acetaminophen (Tylenol) 325 MG tablet Take 2 (two) tablets by mouth every 4 hours as needed for Fever or Pain Maximum allowable Acetaminophen amount = 4 Grams (4000 mg) / 24 hours. 4 Active amphetamine-de xtroamphetamin e (Adderall) 20 MG tablet Take 0.5 (one-half) tablet by mouth 2 times daily Noon and 4 PM 4 Active ALPRAZolam (Xanax) 2 MG tablet Take 1 (one) tablet by mouth 3 times daily as needed for Anxiety Active DULoxetine (Cymbalta) 20 MG capsule TAKE 1 CAPSULE BY MOUTH EVERY DAY 30 capsule 4 Active methocarbamol (Robaxin-750) 750 MG tabletIndicati ons:Muscle spasm Take 1 (one) tablet by mouth every 6 hours as needed for Muscle Spasms 90 tablet 3 4 Active cyclobenzaprin e (Flexeril) 10 MG tabletIndicati ons:Muscle spasm Take 1 (one) tablet by mouth 3 times daily as needed for Muscle Spasms 60 tablet 5 Active Active Problems Problem Noted Date Diagnosed Date Depression 04/22/2024 Panic disorder 04/22/2024 Anxiety 04/22/2024 Mood disorder 03/15/2024 Dyslipidemia 03/15/2024 Obesity, Class II, BMI 35-39.9 03/15/2024 Hypoalbuminemia 03/15/2024 Mass of spine 03/10/2024 Chronic narcotic use 05/15/2018 NADIR (generalized anxiety disorder) 03/17/2017 Fibromyalgia 09/24/2016 Endometriosis 06/20/2016 History of renal cell carcinoma 06/20/2016 Chronic pain 06/20/2016 Colitis Family History Medical History Relation Name Comments Kidney Disease Father Cancer - Prostate Maternal Grandfather Cancer - Ovarian Maternal Grandmother Glaucoma Maternal Grandmother Cancer - Breast Mother Hypertension Paternal Grandfather Hypertension Paternal Grandmother Relation Name Status Comments Father Alive Maternal Grandfather Maternal Grandmother Alive Mother Alive Paternal Grandfather Paternal Grandmother Alive Social History Tobacco Use Types Packs/Day Years Used Date Smoking Tobacco: Every Day Cigarettes Smokeless Tobacco: Never Tobacco Cessation:Ready to Q uit: Not Asked; Counseling Given: Not Answered Alcohol Use Standard Drinks/Week Comments No 0 (1 standard drink = 0.6 oz pur e alcohol) PHQ-2 Answer Date Recorded Patient Health Questionnaire-2 Score 6 04/21/2024 Comments No Sex and Gender Information Value Date Recorded Sex Assigned at Not on file 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 Gender Identity Not on file Sexual Orientation Not on file Last Filed Vital Signs Vital Sign Reading Time Taken Comments Blood Pressure 133/91 07/06/2024 8:41 AM CDT Pulse 92 07/06/2024 8:39 AM CDT Temperature 36.7 C (98 F) 07/06/2024 8:39 AM CDT Respiratory Rate 18 05/18/2024 1:01 PM CDT Oxygen Saturation 99% 07/06/2024 8:39 AM CDT Inhaled Oxygen Concentration - - Weight 89.8 kg (198 lb) 07/06/2024 8:39 AM CDT Height 154.9 cm (5' 1) 07/06/2024 8:39 AM CDT Body Mass Index 37.41 07/06/2024 8:39 AM CDT Plan of Treatment Upcoming Encounters Date Type Department Care Team (Late st Contact Info) Description 07/12/2025 11:30 AM CDT Appointment [facility] MRI [address] [place] [address] 07/12/2025 1:15 PM CDT Office Visit [facility] - Neurosurgery [address] [facility] [facility] [place] [address] De Perez MD [address] [place] [address] [place] [address] Health Maintenance Due Date Last Done Comments COLOGUARD (AGES 45-75) - COLON CA SCREENING 1979 COLON MONITORING 1979 COLONOSCOPY - COLON CA SCREENING 1979 CT COLONOGRAPHY - COLON CA SCREENING 1979 Colorectal Cancer Screening 1979 FIT - COLON CA SCREENING 1979 FLEX SIG - COLON CA SCREENING 1979 LIPID TESTING 1979 HIV SCREENING 1994 HEPATITIS C SCREENING 08/28/1997 DTAP/TDAP/TD VACCINES (1 - Tdap) 1998 HEPATITIS B VACCINE (1 of 3 - 19+ 3-dose series) 1998 PNEUMOCOCCAL VACCINE (1 of 2 - PCV) 1998 HPV VACCINE (1 - 3-dose SCDM series) 2006 COVID-19 VACCINE (1 - season) 2024 DEPRESSION SCREENING 11/24/2024 05/18/2024 INFLUENZA VACCINE (#1) 2025 11/03/2018, 2013 MAMMOGRAM 02/11/2026 02/12/2024, 01/23, 02/12/2024, Additional history exists SCREENING FOR DIABETES 03/18/2027 , 03/17/2024, 03/16/2024, Additional history exists ZOSTER VACCINE (1 of 2) 2029 HIB VACCINE Aged Out No longer eligi ble based on patient's age to complete this topic MENINGOCOCCAL (Group B) VACCINE SHARED DECISION-MAKING Aged Out No longer eligible based on patient's age to complete this topic MENINGOCOCCAL GROUPS A/C/Y/W VACCINE Aged Out No longer eligible based on patient's age to complete this topic Procedures Procedure Name Priority Date/Time Associated Diagnosis Comments RENAL FUNCTION PANEL AM Draw 03/18/2024 2:56 AM CDT Mass of spine MAMMO BILAT DIAGNOSTIC Routine 08/15/2017 9:15 AM CDT Breast lump from Last 3 Months or Most Recently Relevant to Health Maintenance Results * (ABNORMAL) RENAL FUNCTION PANEL (03/18/2024 2:56 AM CDT) BUN 14 7 - 26 mg/dL 03/18/2024 6:19 AM [facility] Creatinine 0.60 0.56 - 0.96 mg/dL 03/18/2024 6:19 AM [facility] Sodium 141 136 - 145 mmol/L 03/18/2024 6:19 AM [facility] Potassium 4.1 3.5 - 4.5 mmol/L 03/18/2024 6:19 AM [facility] Chloride 108(H) 98 - 107 mmol/L 03/18/2024 6:19 AM [facility] CO2 28 22 - 29 mmol/L 03/18/2024 6:19 AM [facility] Glucose 86 70 - 115 mg/dL 03/18/2024 6:19 AM [facility] Albumin 2.8(L) 3.4 - 5.0 g/dL 03/18/2024 6:19 AM [facility] Calcium 8.5 8.4 - 10.2 mg/dL 03/18/2024 6:19 AM [facility] Phosphorus 3.3 2.9 - 5.1 mg/dL 03/18/2024 6:19 AM CDT [facility] Anion Gap 5(L) 6 - 16 03/18/2024 6:19 AM CDT [facility] BUN/Creatinine Ratio 23 7 - 23 03/18/2024 6:19 AM CDT [facility] Osmolality Calculated 292 275 - 295 mOsm/kg 03/18/2024 6:19 AM T [facility] eGFR by CKD-EPI >90 >=90 mL/min/1.7 3 m2 03/18/2024 6:19 AM T [facility] Blood BLOOD SPECIMEN / Unknown Lab Venipuncture / Unknown 03/18/2024 2:56 AM CDT 03/18/2024 5:50 AM CDT us Alexander Ramon MD LAB - CHEMISTRY ORDERABLES Final Result [address] [address], [facility] [phone] * RICHARD DIAGNOSTIC BILATERAL DIGITAL G0204 (08/15/2017 9:15 AM CDT) Anatomical Region Laterality Modality Bilateral Mammography 08/15/2017 9:23 AM CDT Impressions 08/15/2017 12:44 PM CDT 1. No mammographic evidence of malignancy. Recommend annual mammogram. 2. I discussed the findings of mammography and sonography with the patient. I discussed with her that palpable abnormalities need to be managed on a clinical basis and that imaging does not detect all abnormalities. I urged her to continue regular self breast examination and if there are persistent palpable abnormalities that surgical consultation may be indicated. 3. BI-RADS Category 2: Benign. A) A negative report should not delay a biopsy if a dominant or clinically suspicious mass is present. B) Adenosis and dense breasts may obscure an underlying neoplasm. C) Study interpreted with computer-aided detection. MQSA BI-RADS Categories: Category 0 - needs additional imaging evaluation. Category 1 - negative. Category 2 - benign findings. Category 3 - probably benign findings, but short interval followup is recommended. Category 4 - suspicious abnormality and biopsy should be considered though the lesion may well be benign. Category 5 - highly suggestive of malignancy and appropriate action should be taken. Edited by Ava Angel on 08/15/2017 11:47 AM Narrative 08/15/2017 12:44 PM CDT IMAGING STUDIES: MAMMO DIAG DIRECT DIGITAL IMAGE BILATERAL WITH CAD AND 3-D TOMOSYNTHESIS DATE: 08/15/2017 9:15 AM HISTORY: 34-year-old female with reported lumpiness in the upper-outer quadrant of both breasts. Reported history of mother with breast cancer diagnosed in her 50s. Patient has personal history of kidney cancer. Prior benign left breast biopsy in 2014. COMPARISON: Mammogram 12/19/2014 and 02/15/2014. Ultrasound left breast 12/19/2014. Bilateral breast ultrasound 02/15/2014. DISCUSSION: Digital diagnostic bilateral mammogram with CAD. Standard bilateral CC and MLO views with 2-D imaging and 3-D tomography. Additional diagnostic views of both breasts including exaggerated CC and ML view and spot compression CC and MLO views of the upper-outer quadrant with 2-D imaging and 3-D tomography. After review of the images, additional spot compression magnification view obtained of the upper-outer left breast in exaggerated CC, MLO, and ML views. Very dense breast parenchymal pattern with moderate heterogeneity substantially limiting sensitivity of mammography. Marker in the posterior upper-outer quadrant left breast from prior benign biopsy. Benign calcifications in each breast. In the upper-outer quadrant left breast are a few grouped punctate calcifications without pleomorphic forms or suspicious morphology. No appreciable mammographically suspicious mass, microcalcification, or architectural distortion. Ultrasound performed of the entire upper-outer quadrant of each breast. Refer to dedicated report for details. No appreciable discrete sonographic mass or architectural distortion. us Lily Zapien MD MAMMO ORDERABLES Fin al Result from Last 3 Months or Most Recently Relevant to Health Maintenance Insurance MEDICAID - [place] [facility] Advance Directives * Full Code (Latest Code Status on File) Date Activated Date Inactivated Comments 03/10/2024 10:06 PM 03/19/2024 12:43 PM Care Teams Slide Attendant Relationship Specialty Start Date End Date Yoel Watson MD [address] [place] [address] PCP - General Gastroenterology 01/20/25
[2025-07-01 19:27] LABS: Hematocrit 48.0 % (37.0-47.0); Hemoglobin 15.6 g/dL (12.0-15.0); Mean Corpuscular HGB Conc 32.5 g/dl (32-36); Mean Corpuscular Hemoglobin 30.4 pg (26-34); Mean Corpuscular Volume 93.6 fl (80-100); Platelet Count Result 270 k/mm3 (150-375); Red Blood Count 5.13 M/mm3 (4.2-5.4); White Blood Count 6.6 K/mm3 (4.5-10.0)
[2025-07-01 19:37] LABS: Alanine Aminotransferase 29 U/L (6-35); Albumin Level 4.2 g/dL (3.5-5.1); Alkaline Phosphatase 73 U/L (38-126); Anion Gap 6 mmol/L (4-12); Aspartate Amino Transferase 47 U/L (14-36); Bilirubin,Total 0.6 mg/dL (0.2-1.3); Blood Urea Nitrogen 9 mg/dL (7-17); Calcium 9.6 mg/dL (8.4-10.2); Carbon Dioxide 30 mmol/L (22-30); Chloride 101 mmol/L (98-107); Cholesterol 222 mg/dL (0-200); Estimated Glomerular Filt Rate > 60; Glucose 82 mg/dL (65-110); HDL Direct 39 mg/dL; Potassium 4.3 mmol/L (3.4-5.0); Sodium 137 mmol/L (137-145); Total Protein 7.4 g/dL (6.3-8.2); Triglycerides 131 mg/dL (<150)
[2025-07-01 19:38] LABS: Hemoglobin A1C 5.3 % (<5.7)
[2025-07-01 19:56] LABS: Free T4 Free Thyroxine 1.28 ng/dL (0.78-2.19)
[2025-07-01 20:04] LABS: Add Urine Microscopic? NO; Appearance Urine Clear (Clear); Glucose Urine UA Negative (Negative); Leukocyte Esterase Ur Negative LEU/UL (Negative); Nitrate Urine Negative (Negative); Specific Grav Ur 1.007 (1.001-1.035)
[2025-07-01 20:07] LABS: Thyroid Stimulating Hormone 0.831 uIU/mL (0.465-4.680)
[2025-07-01 20:55] LABS: MALB Creatinine Ratio 8.3 mg/g (0-30)
== END 2025-07-01 14:05 | disposition home or self-care (01) ==
LOC: ANHGOSHLAB 14:05
PROVIDERS: PCP Emergency Medicine; Visit Provider Emergency Medicine
DX: F90.9 Attention-deficit hyperactivity disorder, unspecified type (principal); E55.9 Vitamin D deficiency, unspecified; K21.00 Gastro-esophageal reflux disease with esophagitis, without bleeding
CPT/HCPCS: 36415; 80053; 80061; 81003; 82043; 82306; 83036; 84439; 84443; 85027

== ENCOUNTER 2025-07-19 13:29 | Outpatient (CLI) | payer OTHER, SELFPAY ==
--- OUTSIDE RECORDS SUMMARY | 2016-05-22 03:30 | XMS_ITS | Continuity of Care Document ---
Author Organization [facility] Address [address] [place] [address] [place] [address] Phone Care Team Providers Care Sales Marketing Director Name Role Phone Chema Yuan MD Unavailable Unavailable Allergies, Adverse Reactions, Alerts Substance Reaction Status Criticality levofloxacin Active No Information Medications Medication Instructions Dosage Effective Dates (start - stop) Status Comments Xanax 1 mg tablet take 1 tablet by oral route 3 times every day 1 MG - Active avoid driving or operate machines Osseo 10 mg-325 mg tablet take 1 by [...] Providers Copied on Encounter OFFICE/OUTPA TIENT VISIT, [facility], [address] [place], [place], [address], [place] tel:[phone] [facility] chronic pain (chief complaint)an xiety1 (chief complaint) Chronic pain syndromeGeneraliz ed anxiety disorder 6 Kwabena Bear. [address] [place], [address] , [place]. tel:[phone] Referring Provider: Chema Yuan, [address], [place], [place], [address]. tel:[phone] OFFICE/OUTPA TIENT VISIT, [facility], [address] [place], [place], [address], [place] tel:[phone] anxiety1 (chief complaint)ab d pain (chief complaint) Abdominal painGeneralized anxiety disorder Kash-0 6 Kwabena Bear. [address], [place], [place], [address] , [place]. tel:[phone] Referring Provider: Chema Yuan, [address], [place], [place], [address]. tel:[phone] OFFICE/OUTPA TIENT VISIT, [facility], [address], [place], [place], [address], [place] tel:[phone] anxiety1 (chief complaint)ch ronic pain (chief complaint)HL P (chief complaint)vi tamin D (chief complaint) Generalized anxiety disorderChronic pain syndromeHyperlipi demiaVitamin D deficiency, unspecified 6 Kwabena Bear. [address], [place], [place], [address] , [place]. tel:[phone] Referring Provider: Chema Yuan, [address], [place], [place], [address]. tel:[phone] OFFICE/OUTPA TIENT VISIT, [facility], [address], [place], [place], [address], [place] tel:[phone] anxiety1 (chief complaint)AB d pain (chief complaint) Chronic pain syndromeGeneraliz ed anxiety disorder Feb-0 6 Kwabena Bear. [address], [place], [place], [address] , [place]. [phone] Referring Provider: Chema Yuan [address], [place], [place], [address]. tel:[phone] OFFICE/OUTPA TIENT VISIT, [facility], [address], [place], [place], [address], [place] tel:[phone] abd pain (chief complaint)an xiety1 (chief complaint) Abdominal painGeneralized anxiety disorder Mar-0 7-201 6 Kwabena Bear. [address], [place], [place], [address] , [place]. [phone] Referring Provider: Roger Knox [address], [place], [place], [address]. tel:[phone] OFFICE/OUTPA TIENT VISIT, EST [facility], [address], [place], [place], [address], [place] tel:[phone] vaginal discharge1 (chief complaint)ch roinc pain (chief complaint)an xiety1 (chief complaint) Other specified noninflammatory disorders of vaginaGeneralized anxiety disorderChronic pain syndrome 6 Kwabena Bear. [address], [place], [place], [address] , [place]. [phone] Referring Provider: Roger Knox [address], [place], [place], [address]. tel:[phone] PREV VISIT, EST, AGE 17-39 [facility], [address], [place], [place], [address], [place] tel:[phone] Physical (chief complaint) Encntr for general adult medical exam w/o abnormal findings 6 Kwabena Bear. [address], [place], [place], [address] , [place]. tel:[phone] Referring Provider: Roger Knox [address], [place], [place], [address]. tel:[phone] OFFICE/OUTPA TIENT VISIT, EST [facility], [address], [place], [place], [address], [place] tel:[phone] anxiety1 (chief complaint)ab d pain1 (chief complaint) Abdominal painGeneralized anxiety disorderAnxiolyti c dependence 5 Kwabena Bear. [address], [place], [place], [address] , [place]. [phone] Referring Provider: Chema Yuan, [address], [place], [place], [address]. tel:[phone] OFFICE/OUTPA TIENT VISIT, [facility], [address], [place], [place], [address], [place] tel:[phone] anxiety1 (chief complaint)ab d pain (chief complaint) Generalized Anxiety DisorderGeneraliz ed abdominal pain Nov 0-201 5 Kwabena Bear. [address], [place], [place], [address] , [place]. tel:[phone] Referring Provider: Roger Knox [address], [place], [place], [address]. tel:[phone] OFFICE/OUTPA TIENT VISIT, [facility], [address], [place], [place], [address], [place] tel:[phone] anxiety1 (chief complaint)ab dominal pain1 (chief complaint) Generalized anxiety disorderGeneraliz ed abdominal pain 4-201 5 Kwabena Bear. [address], [place], [place], [address] , [place]. tel:[phone] Referring Provider: Roger Knox [address], [place], [place], [address]. tel:[phone] OFFICE/OUTPA TIENT VISIT, [facility], [address], [place], [place], [address], [place] tel:[phone] sinusitis (chief complaint)si nusitis (chief complaint)an xiety (chief complaint)ab dominal pain (chief complaint) Acute sinusitisGenerali zed Anxiety DisorderAbdominal pain, unspecified site 6 5 Kwabena Bear. [address], [place], [place], [address] , [place]. tel:[phone] Referring Provider: Roger Knox [address], [place], [place], [address]. tel:[phone] OFFICE/OUTPA TIENT VISIT, [facility], [address], [place], [place], [address], [place] tel:[phone] pelvic pain (chief complaint)ab dominal pain (chief complaint)ab domen (chief complaint)pe lvic fluid (chief complaint) Abdominal painOvarian cystEnteritis Kash-2 5 Kwabena Bear. [address], [place], [place], [address] , [place]. tel:[phone] Referring Provider: Roger Knox [address], [place], [place], [address]. tel:[phone] OFFICE/OUTPA TIENT VISIT, [facility], [address], [place], [place], [address], [place] tel:[phone] abdominal pain (chief complaint)HL P (chief complaint)sk in itching (chief complaint) Abdominal PainOpioid type dependence, unspecified useRash and other nonspecific skin eruptionOther and unspecified hyperlipidemia Jan-3 5 Kwabena Bear. [address], [place], [place], [address] , [place]. tel:[phone] Referring Provider: [address], [place], [place], [address]. tel:[phone] OFFICE/OUTPA TIENT VISIT, [facility], [address], [place], [place], [address], [place] tel:[phone] chronic pain (chief complaint)an xiety (chief complaint)va ginal yesats (chief complaint) Abdominal PainOpioid type dependence, unspecified useGeneralized anxiety disorderLeukorrhe a, not specified as infective Jan-0 5 Kwabena Bear. [address], [place], [place], [address] , [place]. tel:[phone] Referring Provider: Roger Knox [address], [place], [place], [address]. tel:[phone] OFFICE/OUTPA TIENT VISIT, [facility], [address], [place], [place], [address], [place] tel:[phone] [facility] abdominal pain (chief complaint)br east nodule (chief complaint)HL P (chief complaint) Dietary surveillance and counselingAbdomin al PainOther and unspecified hyperlipidemia 5 Kwabena Bear. [address], [place], [place], [address] , [place]. tel:[phone] Referring Provider: Roger Knox [address], [place], [place], [address]. tel:[phone] OFFICE/OUTPA TIENT VISIT, EST [facility], [address], [place], [place], [address], [place] tel:[phone] [facility] sinus (chief complaint)ab dominal pain (chief complaint)an xiety (chief complaint) Dietary surveillance and counselingAbdomin al PainGeneralized anxiety disorderUnspecifi ed sinusitis (chronic) 5 Kwabena Bear. [address], [place], [place], [address] , [place]. tel:[phone] Referring Provider: Roger Knox [address], [place], [place], [address]. tel:[phone] PREV VISIT, EST, AGE 17-39 [facility], [address], [place], [place], [address], [place] tel:[phone] [facility] Physical (chief complaint) Dietary surveillance and counselingRoutine Medical ExamRoutine Medical Exam 4 Kwabena Nieto [address], [place], [place], [address] , [place]. tel:[phone] Referring Provider: Roger [address], [place], [place], [address]. tel:[phone] OFFICE/OUTPA TIENT VISIT, EST [facility], [address], [place], [place], [address], [place] tel:[phone] abdominal pain (chief complaint)le g numbness (chief complaint)HL P (chief complaint) Dietary surveillance and counselingAbdomin al PainDisturbance of skin sensationOther and unspecified hyperlipidemia 4 Kwabena Bear. [address], [place], [place], [address] , [place]. tel:[phone] Referring Provider: Roger Knox [facility] A, [place], [place], [address]. tel:[phone] OFFICE/OUTPA TIENT VISIT, [facility], [address] [place] [place], [address], [place] tel:[phone] abdominal pain (chief complaint)ba ck pain (chief complaint)nu mnbess (chief complaint)an xiety (chief complaint)he adache (chief complaint)ra sh (chief complaint) Dietary surveillance and counselingAbdomin al PainGeneralized anxiety disorderHeadacheD isturbance of skin sensation 4 Kwabena Bear. [address] [facility] [address], [place], [place], [address] , [place]. tel:[phone] Referring Provider: Roger Knox [facility] A, [place], [place], [address]. tel:[phone] OFFICE/OUTPA TIENT VISIT, [facility], [address] [place], [address], [place] tel:[phone] abdominal pain (chief complaint)nu mbness (chief complaint) Dietary surveillance and counselingAbdomin al PainDisturbance of skin sensationLumbago 4 Kwabena Bear. [address], [place], [place], [address] , [place]. tel:[phone] Referring Provider: Roger Knox [facility] A, [place], [place], [address]. tel:[phone] OFFICE/OUTPA TIENT VISIT, [facility], [address] [place], [address], [place] tel:[phone] numbness (chief complaint)ba ck pain (chief complaint)ab dominal pain (chief complaint)re nal CA (chief complaint) LumbagoDisturbanc e of skin sensationAbdomina l PainDietary surveillance and counseling 4 Kwabena Bear. [address], [place], [place], [address] , [place]. tel:[phone] Referring Provider: Roger Knox [address], [place], [place], [address]. tel:[phone] OFFICE/OUTPA TIENT VISIT, [facility], [address], [place], [place], [address], [place] tel:[phone] abdominal pain (chief complaint)nu mbness (chief complaint) Dietary surveillance and counselingDietary surveillance and counselingAbdomin al PainDisturbance of skin sensation 4 Kwabena Bear. [address], [place], [place], [address] , [place]. tel:[phone] Referring Provider: Roger Knox [address], [place], [place], [address]. tel:[phone] OFFICE/OUTPA TIENT VISIT, [facility], [address], [place], [place], [address], [place] tel:[phone] abdominal pain (chief complaint)Le ft upper leg numbness (chief complaint) Dietary surveillance and counselingAbdomin al PainDisturbance of skin sensation 4 Kwabena Bear. [address], [place], [place], [address] , [place]. tel:[phone] Referring Provider: Roger Knox [address], [place], [place], [address]. tel:[phone] OFFICE/OUTPA TIENT VISIT, [facility], [address], [place], [place], [address], [place] tel:[phone] abdominal pain (chief complaint) Abdominal PainAcute pancreatitis 4 Kwabena Bear. [address], [place], [place], [address] , [place]. tel:[phone] Referring Provider: Roger Knox [address], [place], [place], [address]. tel:[phone] OFFICE/OUTPA TIENT VISIT, [facility], [address], [place], [place], [address], [place] tel:[phone] allergy (chief complaint)ab dominal pain (chief complaint)ra sh (chief complaint) Dietary surveillance and counselingAllergi c rhinitis, cause unspecifiedAbdomi nal PainRash and other nonspecific skin eruption March-0 4 Kwabena Bear. [address], [place], [place], [address] , [place]. tel:[phone] Referring Provider: Roger Knox [address], [place], [place], [address]. tel:[phone] OFFICE/OUTPA TIENT VISIT, [facility], [address], [place], [place], [address], [place] tel:[phone] abdominal pain (chief complaint)ra sh (chief complaint)br east lump (chief complaint) Dietary surveillance and counselingRash and other nonspecific skin eruptionLump or mass in breastAbdominal Pain 4 Kwabena Bear. [address], [place], [place], [address] , [place]. tel: [phone] Referring Provider: Roger Knox [address], [place], [place], [address]. tel:[phone] OFFICE/OUTPA TIENT VISIT, [facility], [address], [place], [place], [address], [place] tel:[phone] breast nodule (chief complaint)ab dominal pain (chief complaint)br east rash (chief complaint) Dietary surveillance and counselingLump or mass in breastRash and other nonspecific skin eruptionAbdominal Pain 4 Kwabena [address], [place], [place], [address] , [place]. tel:[phone] Referring Provider: Roger Knox [address], [place], [place], [address]. tel:[phone] OFFICE/OUTPA TIENT VISIT, [facility], [address], [place], [place], [address], [place] tel:[phone] abdominal pain (chief complaint)an xiety (chief complaint)to bacco (chief complaint) Dietary surveillance and counselingAbdomin al PainGeneralized anxiety disorderTobacco Abuse 4 Kwabena Bear. [address], [place], [place], [address] , [place]. [phone] Referring Provider: Roger Knox [address], [place], [place], [address]. tel:[phone] OFFICE/OUTPA TIENT VISIT, [facility], [address], [place], [place], [address], [place] tel:[phone] hematuria (chief complaint)ab dominal pain (chief complaint)to bacco (chief complaint)an xiety (chief complaint) Dietary surveillance and counselingHEMATUR IA NOSAbdominal PainGeneralized anxiety disorder 4 Kwabena Bear. [address], [place], [place], [address] , [place]. [phone] Referring Provider: [address], [place], [place], [address]. tel:[phone] OFFICE/OUTPA TIENT VISIT, [facility], [address], [place], [place], [address], [place] tel:[phone] sinus (chief complaint)ab dominal pain (chief complaint) Dietary surveillance and counselingSinusit is, AcuteAbdominal Pain 3 Kwabena Bear. [address], [place], [place], [address] , [place]. [phone] Referring Provider: Roger Knox [address], [place], [place], [address]. tel:[phone] PREV VISIT, EST, AGE 17-39 [facility], [address], [place], [place], [address], [place] tel:[phone] [facility] PHysical (chief complaint) Routine Medical ExamRoutine Medical Exam 3 Kwabena Bear. [address], [place], [place], [address] , [place]. tel:[phone] Referring Provider: Roger Knox [address], [place], [place], [address]. tel:[phone] OFFICE/OUTPA TIENT VISIT, [facility], [address], [place], [place], [address], [place] tel:[phone] [facility] abdominal pain (chief complaint)GE RD (chief complaint) Dietary surveillance and counselingAbdomin al PainGERD 3 Kwabena Nieto [address], [place], [place], [address] , [place]. [phone] Referring Provider: Roger Knox [address], [place], [place], [address]. tel:[phone] OFFICE/OUTPA TIENT VISIT, EST [facility], [address], [place], [place], [address], [place] tel:[phone] [facility] UTI (chief complaint)ab dominal pain (chief complaint) Dietary surveillance and counselingAbdomin al PainUrinary Tract Infection 3 Kwabena Bear. [address], [place], [place], [address] , [place]. [phone] Referring Provider: Roger Knox [address], [place], [place], [address]. tel:[phone] OFFICE/OUTPA TIENT VISIT, EST [facility], [address], [place], [place], [address], [place] tel:[phone] abnormal mammogram (chief complaint)ab dominal pain (chief complaint)GE RD (chief complaint) Abdominal PainUnspecified abnormal mammogramGERD 3 Kwabena Bear. [address], [place], [place], [address] , [place]. tel:[phone] Referring Provider: Roger Knox [address], [place], [place], [address]. tel:[phone] OFFICE/OUTPA TIENT VISIT, [facility], [address], [place], [place], [address], [place] tel:[phone] abdominal pain (chief complaint) Abdominal Pain 3 Kwabena Bear. [address], [place], [place], [address] , [place]. tel:[phone] Referring Provider: Roger Knox [address], [place], [place], [address]. tel:[phone] OFFICE/OUTPA TIENT VISIT, [facility], [address], [place], [place], [address], [place] tel:[phone] Headache (chief complaint)ab dominal pain (chief complaint)br east cyst (chief complaint) Abdominal PainHeadacheLump or mass in breast 3 Kwabena Bear. [address], [place], [place], [address] , [place]. [phone] Referring Provider: Roger Knox [address], [place], [place], [address]. tel:[phone] OFFICE/OUTPA TIENT VISIT, [facility], [address], [place], [place], [address], [place] tel:[phone] headache (chief complaint)ab dominal pain (chief complaint)br east lump (chief complaint) HeadacheAbdominal PainGeneralized anxiety disorderLump or mass in breast 3 Kwabena Bear. [address], [place], [place], [address] , [place]. [phone] Referring Provider: Roger Knox [address], [place], [place], [address]. tel:[phone] OFFICE/OUTPA TIENT VISIT, [facility], [address], [place], [place], [address], [place] tel:[phone] [facility] abdominal pain (chief complaint)Pa lpitation (chief complaint)He adache (chief complaint) Abdominal PainGeneralized anxiety disorderHeadacheP alpitations 3 Kwabena Bear. [address], [place], [place], [address] , [place]. tel:[phone] Referring Provider: Chema Yuan, [address], [place], [place], [address]. tel:[phone] OFFICE/OUTPA TIENT VISIT, [facility], [address], [place], [place], [address], [place] tel:[phone] Headache (chief complaint)pa lpitations (chief complaint)an xiety (chief complaint) Abdominal PainGeneralized anxiety disorderPalpitati ons 3 Kwabena Bear. [address], [place], [place], [address] , [place]. tel:[phone] Referring Provider: Chema Yuan, [address], [place], [place], [address]. tel:[phone] OFFICE/OUTPA TIENT VISIT, [facility], [address], [place], [place], [address], [place] tel:[phone] [facility] palpitation (chief complaint) Palpitations 3 Kwabena Bear. [address], [place], [place], [address] , [place]. tel:[phone] Referring Provider: Chema Yuan, [address], [place], [place], [address]. tel:[phone] OFFICE/OUTPA TIENT VISIT, [facility], [address], [place], [place], [address], [place] tel:[phone] [facility] abdominal pain (chief complaint)He adache (chief complaint) Abdominal PainHeadache 3 Kwabena Bear. [address], [place], [place], [address] , [place]. tel:[phone] Referring Provider: Roger Knox [address], [place], [place], [address]. tel:[phone] OFFICE/OUTPA TIENT VISIT, [facility], [address], [place], [place], [address], [place] tel:[phone] abdominal pain (chief complaint)so re throat (chief complaint) Acute upper respiratory infections of other multiple sitesAbdominal Pain Jan-0 3 Kwabena Bear. [address], [place], [place], [address] , [place]. tel:[phone] Referring Provider: Chema Yuan, [address], [place], [place], [address]. tel:[phone] OFFICE/OUTPA TIENT VISIT, [facility], [address], [place], [place], [address], [place] tel:[phone] [facility] UTI (chief complaint)Si nus (chief complaint)ab dominal pain (chief complaint)an xiety (chief complaint) Urinary Tract InfectionAbdomina l PainAcute maxillary sinusitisGenerali zed anxiety disorder 3 Kwabena Bear. [address], [place], [place], [address] , [place]. tel:[phone] Referring Provider: Roger Knox [address], [place], [place], [address]. tel:[phone] OFFICE/OUTPA TIENT VISIT, [facility], [address], [place], [place], [address], [place] tel:[phone] abdominal pain (chief complaint)si nus infection (chief complaint)an xiety (chief complaint) Abdominal PainAcute maxillary sinusitisGenerali zed anxiety disorder 3 Kwabena Bear. [address], [place], [place], [address] , [place]. tel:[phone] Referring Provider: Roger Knox [address], [place], [place], [address]. tel:[phone] OFFICE/OUTPA TIENT VISIT, [facility], [address], [place], [place], [address], [place] [phone] [facility] abdominal pain (chief complaint) Abdominal Pain 2 Kwabena Bear. [address], [place], [place], [address] , [place]. [phone] Referring Provider: Roger Knox [address], [place], [place], [address]. tel:[phone] OFFICE/OUTPA TIENT VISIT, [facility], [address], [place], [place], [address], [place] [phone] [facility] abdominal pain (chief complaint) Dietary surveillance and counselingAbdomin al Pain 2 Kwabena Bear. [address], [place], [place], [address] , [place]. [phone] Referring Provider: Roger Knox [address], [place], [place], [address]. tel:[phone] OFFICE/OUTPA TIENT VISIT, [facility], [address], [place], [place], [address], [place] [phone] abdominal pain (chief complaint)hy perlipidemia (chief complaint) Dietary surveillance and counselingColitis , enteritis, and gastroenteritis of presumed infectious originOther and unspecified hyperlipidemiaNeo plasm of uncertain behavior of adrenal glandCongenital single renal cyst 2 Kw[address] Bear. [address], [address], [place], [place], [id number] , [place]. [phone] Referring Provider: Roger [address], [place], [place], [id number]. tel:[phone] Family History Family Member Type Diagnosis Age At Onset Father Problem (finding) Alive and well Brother Problem (finding) Alive and well Mother Problem (finding) Alive and well Payers Payer name Insurance type Covered libertarian ID Martinez elizondo(s) No Information Social History [...] Of Treatment Date Type Action Status Goal Tdap. Due on due Goal Depression [...] Goal Pap/HPV testing. Due on due Goal Pap/HPV testing. Due [...] Goal Depression screening. Due on due Goal Tobacco cessation counseling [...] Date Complaint History Of Prese nt Illness anxiety1 Pt has chronic a nxiety. Pt denies any depression or any suicidal thought. Pt stopped celexa since not working. Pt only takes xanax now. Pt also missed her psychiatry appointment due to work. Pt denies any crying spells chronic pain Pt has chronic a bdominal pain Pt deneis any worsening pain. 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 Pt wants to take 4 norco per day. abd pain Pt has chronic a bdominal pain. Pt denies any acute worsening pain. Pt denies any nauea, vomiting. diarrhea anxiety1 Pt has chronic a nxiety and depression. pt takes celexa and xanax and doing ok. Pt denies any suicidal or homicidal thought. Pt denies any crying spells vitamin D Pt has low vitam in D. Pt denies any history of fx HLP Pt has HLP. Pt i s trying low fat and low carb diet. chronic pain Pt has chronic a bd apin. Pt denies any worsening pain. Pt takes norco for pain PRN. anxiety1 Pt has chronic a nxiety and depression. Pt takes celexa and xanax. Pt dneies any suicidal or homicdial thought Pt denie sany cryng spells ABd pain Pt has chronic a bdominal pain. Pt takes norco for pain. Pt denies any nausea, vomiting or worsening pain anxiety1 Pt has chronic a nxiety and depression. Pt takes celexa and xanax. Pt doing ok. Pt denies any suicidal or homicidal thought anxiety1 Pt has chronic a nxiety and depression. Pt takes celexa and xanax. Pt denies any sucidal or homicdial thought. Pt denies any crying spells abd pain Pt has chronic a bdominal pain. Pt is opioid dependent. Pt denies any worsening pain Pt denies any nause, vomiting, diarhrea anxiety1 Pt has chronic a nxiety and depression. Pt takes celexa and xanax. Pt denies any suiciadl or homicdial thought. Pt denies any crying spells chroinc pain PT has chronic a bdomial apin due to adhension and no change in quality of pain. Pt denies any worsening pain vaginal discharge1 Pt c/o vagina l discharge with odor for 10 days. Pt c/o mild low pelvic pain. Pt took some flagyl from 2011 which helped but is causing her stomach upset. Pt denies any chance for STD. Pt has not been sexualy active and she had negative STD screening after last sex. Pt denies any vaginal bleeding, NO nauea, vomiting Physical Pt needs annual physical. Pt has [...] crampy pain. Pt denies any other complaints abd pain1 Pt has chornic a bd [...] several weeks anxiety1 Pt has chronic a nxziety and [...] Pt dneies any suicidal or homicidal thought. anxiety1 Pt has chronic a nxiety and [...] any worsening pain Pt has sharp pain abdominal pain Associated sympt oms include back pain. Pertinent negatives include blood in stool, constipation, diarrhea, dyspnea, fever, heartburn, hematuria, rash, vaginal discharge, vomiting and weight loss.Additional information:Pt has chornic abdominal pain. Pt denies any worsening pain. Pt has sharp pain all the time. Pt has history of renal CA. pt has adhension. anxiety The patient pres ents with anxious/fearful [...] crying spells. Pt denies any suicidal thought. sinusitis Pt c/o acute sin us pain, purulent drainage, sore throat, coughing for two weeks. Pt denies any fever Pt denies any headache. Pt denies any recent travel sinusitis pelvic fluid Pt has chronic a nd intermittent low pelvic pain. Pt went to ER twice recently and she was found to have fluid in her pelvic area Pt was recommend surgery in hospital for removal of fluid but she refused. Pt has persistent pelvic pain which is at her baseline now. Pt denies any worsening pain pelvic pain abdomen Pt has chronic a bdominal pain. PT had some CT which showed nonspecific enteritis. Pt was evaluatd by surgeon in hospital and was told nothing to worry about. Pt denies any nausea, vomiting, diarrhea. Pt denies any worsening abdominal pain abdominal pain Instructions Date Instruction Additional [...] Mental Status Date Cognitive Assessment Orientation - Hamilton ed to time, place, person, situation.
--- OUTSIDE RECORDS SUMMARY | 2025-05-16 08:20 | XMS_ITS ---
Author Organization [facility] Address [address] [address] Care Team Providers Care Intel Analyst Name Role Phone Rosanna Soliz Primary Care Provider REASON FOR VISIT [facility] telehealth Pt at Home, Provider at [facility] Encounters Encounter Location Date Provider Diagnosis [facility] [address] [place] [address] 05/16/2025 Rosanna Soliz Plan Of Treatment Next Appt Details Provider Name:Rosanna Soliz, 09/01/2025 01:20:00 PM, [address] , [address], [place], [address], Progress Notes * Bernarda ARSHAD MDOB:1980 (44 yo F)Acc No.[id number]:05/16/2025 UNLOCKED PROGRESS NOTE Patient: Jason Bernarda delacruz Provider: MARISOL AKHTAR :1980 A ge:44 Y S ex:Female Date:05/16/2025 [facility] [facility] Subjective: * Chief Complaints: * E CW telehealth Pt at Home, Provider at [facility] * Electronic signature of MARISOL Willis ra on 07/19/2025 at 01:35 PM CDT Sign off status: Pending Visit Status: R /S (Rescheduled) * Provider: MARISOL AKHTAR Date: 0 05/16/2025 Generated for Sheyla huertas/Braden/Andrew on: 0 07/19/2025 01:35 PM CDT
--- OUTSIDE RECORDS SUMMARY | 2025-05-20 10:00 | XMS_ITS ---
Author Organization [facility] Address [address] [address] Care Team Providers Care Air Battle Manager Name Role Phone Rosanna Soliz Primary Care Provider REASON FOR VISIT [facility] telehealth Pt at Home, Provider at [facility] Medications Medication SIG (Take, Route, Frequency, Duration) Notes Start Date End Date Status Xanax 2 MG Tablet take 1 tablet (2MG) by oral route 4 times every day as needed Oral; Duration: 30 days 03/28/2025 Active Adderall 20 MG Tablet 1/2 tab Orally thr ee times a day; Duration: 30 days forty five 03/28/2025 Active Adderall 20 MG Tablet 1/2 tab Orally thr ee times daily; Duration: 30 days forty five 03/21/2025 Active [place] 10-325 MG take 1 tablet by ora l route every 4- 6 hours as needed for pain Oral ([facility]) Active Zantac 150 MG take 1 tablet (150MG ) by oral route 2 times every day Oral ([facility]) 07/30/2013 Active Effexor XR 37.5 MG Capsule Extended Release 24 Hour 1 capsule with food Orally Once a day; Duration: 30 days 02/21/2025 Active Adderall 20 MG Tablet 1/2 tab Orally thr ee times daily; Duration: 30 days forty five 04/18/2025 Active Encounters Encounter Location Date Provider Diagnosis [address] [address] 05/20/2025 Rosanna Soliz Plan Of Treatment Next Appt Details Provider Name:Rosanna Soliz, 09/01/2025 01:20:00 PM, [address] [facility], [address], [place], [address], Progress Notes * Bernarda ARSHAD MDOB:1980 (44 yo F)Acc No.[id number]:05/20/2025 UNLOCKED PROGRESS NOTE Patient: Bernarda Man Provider: MARISOL AKHTAR :1980 A ge:44 Y S ex:Female Date:05/20/2025 Address:[address] [place], [place] [address] Subjective: * Chief Complaints: * E CW telehealth Pt at Home, Provider at [facility] * Medications: T akingAdderall 20 MG Tablet 1/2 tab Orally three times daily , Notes to Pharmacist: forty fiveAdderall 20 MG Tablet 1/2 tab Orally three times daily , Notes to Pharmacist: forty fiveAdderall 20 MG Tablet 1/2 tab Orally three times a day , Notes to Pharmacist: forty fiveEffexor XR 37.5 MG Capsule Extended Release 24 Hour 1 capsule with food Orally Once a day [place] 10-325 MG take 1 tablet by oral route every 4- 6 hours as needed for pain Oral , Notes to Pharmacist: ([facility])Xanax 2 MG Tablet take 1 tablet (2MG) by oral route 4 times every day as needed Oral Zantac 150 MG take 1 tablet (150MG) by oral route 2 times every day Oral , Notes to Pharmacist: ([facility])Taking Adderall 20 MG Tablet 1/2 tab Orally three times daily , Notes to Pharmacist: forty fiveTaking Adderall 20 MG Tablet 1/2 tab Orally three times daily , Notes to Pharmacist: forty fiveTaking Adderall 20 MG Tablet 1/2 tab Orally three times a day , Notes to Pharmacist: forty fiveTaking Effexor XR 37.5 MG Capsule Extended Release 24 Hour 1 capsule with food Orally Once a day Taking [place] 10- 325 MG take 1 tablet by oral route every 4- 6 hours as needed for pain Oral , Notes to Pharmacist: ([facility])Taking Xanax 2 MG Tablet take 1 tablet (2MG) by oral route 4 times every day as needed Oral Taking Zantac 150 MG take 1 tablet (150MG) by oral route 2 times every day Oral , Notes to Pharmacist: ([facility]) * Electronic signature of MARISOL Willis ra on 07/19/2025 at 01:35 PM CDT Sign off status: Pending Visit Status: N /S (No-Show) * Provider: MARISOL AKHTAR Date: 0 05/20/2025 Generated for Sheyla huertas/Braden/Andrew on: 0 07/19/2025 01:35 PM CDT
--- NOTE | ~2025-07-19 | US_ITS ---
US abdomen limited INDICATION: Enlarged liver PROCEDURE: Realtime right upper abdominal ultrasound. COMPARISON: CT dated 06/16/2017 FINDINGS: The pancreas is normal without focal mass or pancreatic ductal dilation. Liver echotexture is normal without focal mass or intrahepatic biliary dilatation. Liver measures 15 cm. There is normal directional flow in the portal vein. Status post cholecystectomy. Common bile duct measures 4.5 mm. No sonographic Freeman's sign. Right renal echotexture is normal right kidney measures 9.6 cm. IMPRESSION: 1: Normal limited abdominal ultrasound. Reviewed, dictated and finalized at location O.
--- OUTSIDE RECORDS SUMMARY | 2025-07-19 13:35 | XMS_ITS | Clinical Summary ---
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 Gender Identity Not on file Sexual Orientation Not on file Last Filed Vital Signs Vital Sign Reading Time Taken Comments Blood Pressure 120/74 11/03/2018 5:48 PM KETTLE FRY COOK OPERATOR Pulse 109 11/03/2018 5:48 PM KETTLE FRY COOK OPERATOR Temperature 36.6 C (97.9 F) 11/03/2018 5:48 PM KETTLE FRY COOK OPERATOR Respiratory Rate 18 11/03/2018 5:48 PM KETTLE FRY COOK OPERATOR Oxygen Saturation 98% 11/03/2018 5:48 PM KETTLE FRY COOK OPERATOR Inhaled Oxygen Concentration - - Weight 82.6 kg (182 lb) 11/03/2018 5:48 PM KETTLE FRY COOK OPERATOR Height 154.9 cm (5' 1) 11/03/2018 5:48 PM KETTLE FRY COOK OPERATOR Body Mass Index 34.39 11/03/2018 5:48 PM KETTLE FRY COOK OPERATOR Plan of Treatment Health Maintenance Due Date [...] age to complete this topic Insurance MEDICAID [place] Care Teams Ground Instructor Advanced Relationship Specialty Start Date End Date Lily Zapien MD [address] [place], [place] [id number] Obstetrics & Gynecology 10/09/17
--- OUTSIDE RECORDS SUMMARY | 2025-07-19 13:35 | XMS_ITS | Clinical Summary ---
Author Organization [facility] Address [address] [facility] [place] [address] Care Team Providers Care Data Integration Analyst Name Role Phone Yoel Watson MD Primary Care Provider [phone] Source Comments [facility],non-owned Affiliates and Associated Physician Practices is amultiple site organization consisting of ambulatory clinics and hospital sitesin [place], [place], [place] and [place]. This disclosure is being madepursuant to the Care Everywhere program and may not contain all information available regarding this patient. Last updated 18.[employer] Allergies Active Allergy Reactions Criticality Noted Date [...] once daily Active Cholecalcifero l 1.25 MG (74159 UT) Take 1,000 Units by mouth every 7 days Active acetaminophen (Tylenol) 325 MG tablet Take 2 (two) tablets by mouth every 4 hours as needed for Fever or Pain Maximum allowable Acetaminophen amount = 4 Grams (4000 mg) / 24 hours. 03/19/20 24 Active amphetamine-de xtroamphetamin e (Adderall) 20 MG tablet Take 0.5 (one-half) tablet by mouth 2 times daily Noon and 4 PM 04/08/20 24 Active ALPRAZolam (Xanax) 2 MG tablet Take 1 (one) tablet by mouth 3 times daily as needed for Anxiety Active methocarbamol (Robaxin-750) 750 MG tabletIndicati ons:Muscle spasm Take 1 (one) tablet by mouth every 6 hours as needed for Muscle Spasms 90 tablet 3 07/16/20 24 Active cyclobenzaprin e (Flexeril) 10 MG tabletIndicati ons:Muscle spasm Take 1 (one) tablet by mouth 3 times daily as needed for Muscle Spasms 60 tablet 03/30/20 25 Active fluocinolone (Dermotic) 0.01 % otic oil 07/05/20 25 Active venlafaxine XR 24hr (Effexor XR) 37.5 MG capsule Take 1 (one) capsule by mouth daily with food 05/31/20 25 Active DULoxetine (Cymbalta) 20 MG capsule TAKE 1 CAPSULE BY MOUTH EVERY DAY 30 capsule 06/21/20 24 025 Discontin ued(Tx Complete) Active Problems Problem Noted Date Diagnosed Date Depression 04/22/2024 Panic disorder 04/22/2024 Anxiety 04/22/2024 Mood disorder 03/15/2024 Dyslipidemia 03/15/2024 Obesity, Class II, BMI 35-39.9 03/15/2024 Hypoalbuminemia 03/15/2024 Mass of spine 03/10/2024 Chronic narcotic use 05/15/2018 NADIR (generalized anxiety disorder) 03/17/2017 Fibromyalgia 09/24/2016 Endometriosis 06/20/2016 History of renal cell carcinoma 06/20/2016 Chronic pain 06/20/2016 Colitis Encounters Date Type Department Care Team Description 07/12/2025 1:15 PM CDT Office Visit [facility] - Neurosurgery [address] [facility] [place] [address] De Perez MD Spinal vascular malformation (HCC) (Primary Dx) 07/12/2025 11:29 AM CDT - 07/12/2025 11:59 PM CDT Hospital Encounter [facility] MRI [address] [place] [address] Discharge Disposition: Home or Self Care 07/12/2025 Travel from Last 3 Months Family History Medical [...] Tobacco: Never Tobacco Cessation:Ready to Q uit: Yes; Counseling Given: Yes Alcohol Use Standard Drinks/Week Comments No 0 (1 standard drink = 0.6 oz pur e alcohol) PHQ-2 Answer Date Recorded Patient Health Questionnaire-2 Score 6 04/21/2024 Comments No Sex and Gender Information Value Date Recorded Sex Assigned at Not on file 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 Gender Identity Not on file Sexual Orientation Not on file Last Filed Vital Signs Vital Sign Reading Time Taken Comments Blood Pressure 114/74 07/12/2025 1:11 PM CDT Pulse 83 07/12/2025 1:11 PM CDT Temperature 36.9 C (98.5 F) 07/12/2025 1:11 PM CDT Respiratory Rate 18 05/18/2024 1:01 PM CDT Oxygen Saturation 98% 07/12/2025 1:11 PM CDT Inhaled Oxygen Concentration - - Weight 89.8 kg (198 lb) 07/12/2025 1:11 PM CDT Height 154.9 cm (5' 1) 07/12/2025 1:11 PM CDT Body Mass Index 37.41 07/12/2025 1:11 PM CDT Plan of Treatment Health Maintenance Due [...] SCDM series) 2006 COVID-19 VACCINE (1 - ) 07/25/2024 DEPRESSION SCREENING 11/24/2024 05/18/2024 INFLUENZA VACCINE (#1) 2025 11/03/2018, 2013 MAMMOGRAM 02/11/2026 02/12/2024, /11/2023, 08/15/2017 SCREENING FOR DIABETES 03/18/2027 , 03/17/2024, 03/16/2024, [...] Procedure Name Priority Date/Time Associated Diagnosis Comments MRI THORACIC SPINE WWO CONT Routine 07/12/2025 12:08 PM CDT Vascular malformation (HCC) RENAL FUNCTION PANEL AM Draw 03/18/2024 2:56 AM CDT Mass of spine MAMMO BILAT DIAGNOSTIC Routine 08/15/2017 9:15 AM CDT Breast lump from Last 3 Months or Most Recently Relevant to Health Maintenance Results * MRI Thoracic Spine Wwo Cont (07/12/2025 12:08 PM CDT) Anatomical Region Laterality Modality Spine Magnetic Resonan ce 07/12/2025 12:4 3 PM CDT Impressions 07/12/2025 3:56 PM CDT IMPRESSION: 1. Postsurgical changes of interval laminectomy T4-T6 and resection of the previously seen enhancing lesion. 2. Interval resolution of the fluid collection at the laminotomy site as well as marrow edema/enhancement of the left posterior aspect of the T5 vertebral body. > Dictated by Diana Coffey MD, in the presence of Alexander Bartlett MD, (vice president of customer service). > Interpreting Provider: Diana Coffey MD on 07/12/2025 3:56 PM Narrative 07/12/2025 3:56 PM CDT PROCEDURE: MRI THORACIC SPINE WWO CONT DATE/TIME OF EXAM: 07/12/2025 12:25 PM CLINICAL INFORMATION: None relevant/not provided if blank. Indication: Q27.9: Vascular malformation (HCC) Additional History: COMPARISON: MRI thoracic spine with and without contrast dated 06/28/2024. TECHNIQUE: Thoracic spine MRI was performed without and with IV contrast. CONTRAST: GADOBUTROL 1 MMOL/ML IV SSM SO:9 mL FINDINGS: Redemonstrated postsurgical changes of interval laminectomy T4-T6. No residual enhancing lesion. Interval resolution of the small fluid collection at the laminotomy site. Interval resolution of the edema and enhancement and the posterior thecal sac at T4-T6 levels and marrow edema and enhancement in the left posterior aspect of the T5 vertebral body. T1/T2 hyperintense lesion of the T2 vertebral body, consistent with osseous hemangioma, unchanged compared to prior. The alignment is normal. Mild compression deformity of the superior endplate of the T9 vertebra, similar to prior. Redemonstration of small Schmorl's nodes at some levels. The spinal cord appears normal. The intervertebral discs appear normal. No central canal stenosis is seen. The facets appear normal. No neural foraminal stenosis is seen. Redemonstrated bilateral multiple renal cysts. Procedure Note Diana Coffey MD - 07/12/2025 PROCEDURE: MRI THORACIC SPINE WWO CONT DATE/TIME OF EXAM: 07/12/2025 12:25 PM CLINICAL INFORMATION: None relevant/not provided if blank. Indication: Q27.9: Vascular malformation (HCC) Additional History: COMPARISON: MRI thoracic spine with and without contrast dated 06/28/2024. TECHNIQUE: Thoracic spine MRI was performed without and with IV contrast. CONTRAST: GADOBUTROL 1 MMOL/ML IV SSM SO:9 mL FINDINGS: Redemonstrated postsurgical changes of interval laminectomy T4-T6. No residual enhancing lesion. Interval resolution of the small fluid collection at the laminotomy site. Interval resolution of the edema and enhancement and the posterior thecal sac at T4-T6 levels and marrowedema and enhancement in the left posterior aspect of the T5 vertebral body. T1/T2 hyperintense lesion of the T2 vertebral body, consistent withosseous hemangioma, unchanged compared to prior. The alignment is normal. Mild compression deformity of the superior endplate of the T9 vertebra, similar to prior. Redemonstration of small Schmorl's nodes at some levels. The spinal cord appears normal. The intervertebral discs appear normal. No central canal stenosis isseen. The facets appear normal. No neural foraminal stenosis is seen. Redemonstrated bilateral multiple renal cysts. IMPRESSION: 1. Postsurgical changes of interval laminectomy T4-T6 and resection ofthe previously seen enhancing lesion. 2. Interval resolution of the fluid collection at the laminotomy site as well as marrow edema/enhancement of the left posterior aspect of the T5 vertebral body. > Dictated by Diana Coffey MD, in the presence of Alexander Bartlett MD, (vice president of customer service). > Interpreting Provider: Diana Coffey MD on 07/12/2025 3:56 PM us De Perez MD MR ORDERABLES Final Result * (ABNORMAL) RENAL FUNCTION PANEL (03/18/2024 2:56 AM CDT) BUN 14 7 - 26 mg/dL 03/18/2024 6:19 AM [facility] Creatinine 0.60 0.56 - 0.96 mg/dL 03/18/2024 6:19 AM [facility] Sodium 141 136 - 145 mmol/L 03/18/2024 6:19 AM [facility] Potassium 4.1 3.5 - 4.5 mmol/L 03/18/2024 6:19 AM [facility] Chloride 108(H) 98 - 107 mmol/L 03/18/2024 6:19 AM [facility] CO2 28 22 - 29 mmol/L 03/18/2024 6:19 AM [facility] Glucose 86 70 - 115 mg/dL 03/18/2024 6:19 AM [facility] Albumin 2.8(L) 3.4 - 5.0 g/dL 03/18/2024 6:19 AM [facility] Calcium 8.5 8.4 - 10.2 mg/dL 03/18/2024 6:19 AM [facility] Phosphorus 3.3 2.9 - 5.1 mg/dL 03/18/2024 6:19 AM CDT [facility] Anion Gap 5(L) 6 - 16 03/18/2024 6:19 AM CDT [facility] BUN/Creatinine Ratio 23 7 - 23 03/18/2024 6:19 AM CDT [facility] Osmolality Calculated 292 275 - 295 mOsm/kg 03/18/2024 6:19 AM T [facility] eGFR by CKD-EPI >90 >=90 mL/min/1.7 3 m2 03/18/2024 6:19 AM CDT [facility] Blood BLOOD SPECIMEN / Unknown Lab Venipuncture / Unknown 03/18/2024 2:56 AM CDT 03/18/2024 5:50 AM CDT Alexander Ramon MD LAB - CHEMISTRY ORDERABLES Final Result [facility] [address] [place] [address], [facility] [phone] * RICHARD DIAGNOSTIC BILATERAL DIGITAL G0204 (08/15/2017 [...] appreciable discrete sonographic mass or architectural distortion. Lily Zapien MD MAMMO ORDERABLES Fin al Result from Last 3 Months or Most Recently Relevant to Health Maintenance Insurance MEDICAID - [place] [facility] Advance Directives * Full Code (Latest Code Status on File) Date Activated Date Inactivated Comments 03/10/2024 10:06 PM 03/19/2024 12:43 PM Care Teams Data Integration Analyst Relationship Specialty Start Date End Date Yoel Watson MD [address] [place] [address] PCP - General Gastroenterology 01/20/25
--- OUTSIDE RECORDS SUMMARY | 2025-07-19 13:35 | XMS_ITS | Patient Health Record ---
Author Organization [facility] [employer] Address [address] [address] Care Team Providers Care Copying Machine Mechanic Name Role Phone Rosanna Soliz Primary Care Provider Alyssa Ramirez Unavailable [phone] Allergies Allergen (clinical drug ingredient) Drug/Non Drug Allergy documented on EMR Reaction Allergy Type Onset Date Status levofloxacin Levofloxacin swelling Drug Allergy A ctive Reason For Referral No Information Medications Medication SIG (Take, Route, Frequency, Duration) Notes Start Date End Date Status Adderall 20 MG Tablet 1/2 tab Orally thr ee times daily; Duration: 30 days forty five 07/26/2025 Active Xanax 2 MG Tablet take 1 tablet (2MG) by oral route 4 times every day as needed Oral; Duration: 30 days 05/31/2025 Active Adderall 20 MG Tablet 1/2 tab Orally thr ee times a day; Duration: 30 days forty five 06/28/2025 Active Effexor XR 37.5 MG Capsule Extended Release 24 Hour 1 capsule with food Orally Once a day; Duration: 30 days 02/21/2025 Active Zantac 150 MG take 1 tablet (150MG ) by oral route 2 times every day Oral ([facility]) 07/30/2013 Active [place] 10-325 MG take 1 tablet by ora l route every 4- 6 hours as needed for pain Oral ([facility]) Active Adderall 20 MG Tablet 1/2 tab Orally thr ee times daily; Duration: 30 days forty five 05/31/2025 Active Problems Problem Type SNOMED Code ICD Code Onset Dates Problem Status W/U Status Risk Notes Problem Panic disorder without agoraphobia (83392097) Panic disorder without agoraphobia (300.01) 07/30/20 13 Active confirmed ([facility] Added By: Priscilla Tyler Problem Generalized anxiety disorder (68465906) NADIR (generalized anxiety disorder) (F41.1) Active confirmed Problem Attention deficit hyperactivity disorder (402630315) Attention deficit hyperactivity disorder (ADHD), combined type (F90.2) Active confirmed Vital Signs Heart Rate 81 /min 11/01/2024 Temperature 98.2 degrees Fahrenheit 11/01/2024 Respiratory Rate 18 /min 11/01/2024 Blood pressure diastolic 97 mm Hg 11/01/2024 Oximetry 93 % 11/01/2024 Height-cm 157.48 cm 11/01/2024 Weight-kg 89.81 kg 11/01/2024 Height 62 in 11/01/2024 Blood pressure systolic 129 mm Hg 11/01/2024 Weight 198 lbs 11/01/2024 BMI 36.21 kg/m2 11/01/2024 Encounters Encounter Location Date Provider Diagnosis [facility] [address] [place] [address] 11/01/2024 Rosanna Soliz NADIR (generalized anxiety disorder) F41.1 and Attention deficit hyperactivity disorder (ADHD), combined type F90.2 [facility] [address] [place] [address] 01/17/2025 Rosanna Soliz Attention deficit hyperactivity disorder (ADHD), combined type F90.2 and NADIR (generalized anxiety disorder) F41.1 [facility] [address] [place] [address] 02/21/2025 Rosanna Soliz NADIR (generalized anxiety disorder) F41.1 and Attention deficit hyperactivity disorder (ADHD), combined type F90.2 [facility] [address] [place] [address] 05/31/2025 Rosanna Soliz Attention deficit hyperactivity disorder (ADHD), combined type F90.2 and NADIR (generalized anxiety disorder) F41.1 [facility] [place] [address] 09/22/2024 Rosanna Soliz [facility] [address] [place] [address] 10/25/2024 Rosanna Soliz [facility] [address] [place] [address] 11/11/2024 [facility] [address] [place] [address] 03/28/2025 Rosanna Soliz Attention deficit hyperactivity disorder (ADHD), combined type F90.2 and NADIR (generalized anxiety disorder) F41.1 [facility] [address] [place] [address] 04/14/2025 Rosanna Soliz [facility] [address] [place] [address] 04/25/2025 [facility] [address] [place] [address] 05/20/2025 Rosanna Soliz [facility] [address] [place] [address] 05/23/2025 Alyssa Ramirez NADIR (generalized anxiety disorder) F41.1 and Attention deficit hyperactivity disorder (ADHD), combined type F90.2 Assessments Encounter Date Diagnosis (ICD Code) Assessment Notes Treatment Notes Treatment Clinical Notes Section Notes 11/01/2024 NADIR (generalized anxiety disorder) (ICD-10 - F41.1) 11/01/2024 Attention deficit hyperactivity disorder (ADHD), combined type (ICD-10 - F90.2) 01/17/2025 NADIR (generalized anxiety disorder) (ICD-10 - F41.1) 01/17/2025 Attention deficit hyperactivity disorder (ADHD), combined type (ICD-10 - F90.2) 02/21/2025 NADIR (generalized anxiety disorder) (ICD-10 - F41.1) 02/21/2025 Attention deficit hyperactivity disorder (ADHD), combined type (ICD-10 - F90.2) 03/28/2025 Attention deficit hyperactivity disorder (ADHD), combined type (ICD-10 - F90.2) 05/23/2025 NADIR (generalized anxiety disorder) (ICD-10 - F41.1) 05/31/2025 NADIR (generalized anxiety disorder) (ICD-10 - F41.1) 05/31/2025 Attention deficit hyperactivity disorder (ADHD), combined type (ICD-10 - F90.2) 05/23/2025 Attention deficit hyperactivity disorder (ADHD), combined type (ICD-10 - F90.2) 03/28/2025 NADIR (generalized anxiety disorder) (ICD-10 - F41.1) 11/01/2024 Other continue current meds 05/31/2025 Other continue current meds 02/21/2025 Other continue current meds Plan Of Treatment Next Appt Details Provider Name:Rosanna Soliz, 09/01/2025 01:20:00 PM, [facility] [place] [place], [address], Insurance Providers Payer Name Payer Address Payer Phone Subscriber Number Group Number Insured Name Patient Relationship to Insured Coverage Start Date Coverage End Date [facility] Ishmael FQHC [address] [place] [phone] [id number] Bernarda Arshad Self - patient is the insured 4 [facility] Quiñones FFS [address] [place] [address] [phone] [id number] Bernarda Arshad Self - patient is the insured 4 [facility] Qu[employer]ones Nonbillable [address] [place] [address] [phone] [id number] Bernarda Arshad Self - patient is the insured 4 Medical (General) History Medical History History ICD Code Gallbladder removed April 2014 Left kidney removal(2008) Med_System: neoplastic; Disease: Cancer, renal Surgical History Surgery Date(Month/Year) TOTAL HYSTERECTOMY(87835) Hysterectomy, vaginal 2008
--- OUTSIDE RECORDS SUMMARY | 2025-07-19 13:36 | XMS_ITS | Clinical Summary ---
Author Organization [facility] Address [address] [place] [address] Care Team Providers Care Escrow Secretary Name Role Phone J Carlos Hirsch MD Primary Care Provider [phone] Allergies Active Allergy Reactions Criticality Noted Date [...] Active Active Problems No known active problems Family History Medical History Relation Name Comments Breast Cancer Mother Diabetes Mother Relation Name Status Comments Brother Alive Daughter Alive Father Alive Mother Alive Son Alive Social History Tobacco Use Types Packs/Day Years Used Date Smoking Tobacco: Every Day Cigarettes 31.6 Started: 1994 Smokeless Tobacco: Never Tobacco Cessation:Ready to Q uit: Not Asked; Counseling Given: Not Answered Alcohol Use Standard Drinks/Week Comments Yes 0 (1 standard drink = 0.6 oz pur e alcohol) occasional Comments Unknown Sex and Gender Information Value Date Recorded Sex Assigned at Not on file 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 Gender Identity Not on file Sexual Orientation [...] Health Maintenance Due Date Last Done Comments DTAP/TDAP/TD VACCINES (1 - Tdap) 1998 HEPATITIS B VACCINES (1 of 3 - 19+ 3-dose series) 1998 HPV VACCINES (1 - 3-dose SCD M series) 2006 COLORECTAL SCREENING 2024 Colorectal Cancer Screening 2024 FIT-DNA Q 3 years 2024 FIT/FOBT Q 1 year 2024 Flex Sig/CT Colonography Q 5 years 2024 BREAST CANCER SCREENING 02/11/2025 02/12/20 24, 02/12/2024, 02/10/2023, Additional history exists INFLUENZA VACCINE (#1) 2025 11/03/2018, 2013 Insurance [employer] [place] Care Teams Escrow Secretary Relationship Specialty Start Date End Date J Carlos Hirsch MD [address] [place] [phone] PCP - General Family Practice 02/27/24
== END 2025-07-19 13:30 | disposition home or self-care (01) ==
PROVIDERS: PCP Emergency Medicine; Visit Provider Emergency Medicine
DX: E04.2 Nontoxic multinodular goiter (principal); R16.0 Hepatomegaly, not elsewhere classified
CPT/HCPCS: 76705

== ENCOUNTER 2025-07-20 13:46 | Outpatient (CLI) | payer OTHER, SELFPAY ==
--- OUTSIDE RECORDS SUMMARY | 2016-05-22 03:30 | XMS_ITS | Continuity of Care Document ---
Author Organization [facility] Address [address] [place] [address] [place] [address] Phone Care Team Providers Care Direct Response Consultant Name Role Phone Chema Yuan MD Unavailable Unavailable Allergies, Adverse Reactions, Alerts Substance Reaction Status Criticality levofloxacin Active No Information Medications Medication Instructions Dosage Effective Dates (start - stop) Status Comments Xanax 1 mg tablet take 1 tablet by oral route 3 times every day 1 MG - Active avoid driving or operate machines Shiloh 10 mg-325 mg tablet take 1 by Oral route 3 times every day 1 - Active avoid driving or operate machines Procedures Procedure Date OFFICE/OUTPATIENT VISIT, EST OFFICE/OUTPATIENT VISIT, EST OFFICE/OUTPATIENT VISIT, EST OFFICE/OUTPATIENT VISIT, EST OFFICE/OUTPATIENT VISIT, EST OFFICE/OUTPATIENT VISIT, EST PREV VISIT, EST, AGE 18-39 OFFICE/OUTPATIENT VISIT, EST OFFICE/OUTPATIENT VISIT, EST OFFICE/OUTPATIENT VISIT, EST OFFICE/OUTPATIENT VISIT, EST OFFICE/OUTPATIENT VISIT, EST OFFICE/OUTPATIENT VISIT, EST OFFICE/OUTPATIENT VISIT, EST OFFICE/OUTPATIENT VISIT, EST OFFICE/OUTPATIENT VISIT, EST PREV VISIT, EST, AGE 18-39 OFFICE/OUTPATIENT VISIT, EST OFFICE/OUTPATIENT VISIT, EST OFFICE/OUTPATIENT VISIT, EST OFFICE/OUTPATIENT VISIT, EST OFFICE/OUTPATIENT VISIT, EST OFFICE/OUTPATIENT VISIT, EST OFFICE/OUTPATIENT VISIT, EST OFFICE/OUTPATIENT VISIT, EST OFFICE/OUTPATIENT VISIT, EST OFFICE/OUTPATIENT VISIT, EST OFFICE/OUTPATIENT VISIT, EST OFFICE/OUTPATIENT VISIT, EST OFFICE/OUTPATIENT VISIT, EST PREV VISIT, EST, AGE 18-39 OFFICE/OUTPATIENT VISIT, EST OFFICE/OUTPATIENT VISIT, EST OFFICE/OUTPATIENT VISIT, EST OFFICE/OUTPATIENT VISIT, EST OFFICE/OUTPATIENT VISIT, EST OFFICE/OUTPATIENT VISIT, EST OFFICE/OUTPATIENT VISIT, EST OFFICE/OUTPATIENT VISIT, EST OFFICE/OUTPATIENT VISIT, EST OFFICE/OUTPATIENT VISIT, EST OFFICE/OUTPATIENT VISIT, EST OFFICE/OUTPATIENT VISIT, EST OFFICE/OUTPATIENT VISIT, EST OFFICE/OUTPATIENT VISIT, EST OFFICE/OUTPATIENT VISIT, EST OFFICE/OUTPATIENT VISIT, EST Advance Directives Directive Yes / No Effective Date File Name No Information Encounters Encounter Description Practice Location Reason(s) For Visit Diagnoses Date Provider Providers Copied on Encounter OFFICE/OUTPA TIENT VISIT, [facility], [address] [place], [place], [address], [place] tel:[phone] [facility] chronic pain (chief complaint)an xiety1 (chief complaint) Chronic pain syndromeGeneraliz ed anxiety disorder 6 Kwabena Bear. [address] [place], [address] , [place]. tel:[phone] Referring Provider: Chema Yuan, [address], [place], [place], [address]. tel:[phone] OFFICE/OUTPA TIENT VISIT, [facility], [address] [place], [place], [address], [place] tel:[phone] [facility] anxiety1 (chief complaint)ab d pain (chief complaint) Abdominal painGeneralized anxiety disorder Kash-0 6 Kwabena Bear. [address], [place], [place], [address] , [place]. tel:[phone] Referring Provider: Chema Yuan, [address], [place], [place], [address]. tel:[phone] OFFICE/OUTPA TIENT VISIT, [facility], [address], [place], [place], [address], [place] tel:[phone] [facility] anxiety1 (chief complaint)ch ronic pain (chief complaint)HL P (chief complaint)vi tamin D (chief complaint) Generalized anxiety disorderChronic pain syndromeHyperlipi demiaVitamin D deficiency, unspecified 6 Kwabena Bear. [address], [place], [place], [address] , [place]. tel:[phone] Referring Provider: Chema Yuan, [address], [place], [place], [address]. tel:[phone] OFFICE/OUTPA TIENT VISIT, [facility], [address], [place], [address], [place] tel:[phone] [facility] anxiety1 (chief complaint)AB d pain (chief complaint) Chronic pain syndromeGeneraliz ed anxiety disorder Feb-0 6 Kwabena Bear. [address], [place], [place], [address] , [place]. [phone] Referring Provider: Chema Yuan [address], [place], [place], [address]. tel:[phone] OFFICE/OUTPA TIENT VISIT, [facility], [address], [place], [place], [address], [place] tel:[phone] [facility] abd pain (chief complaint)an xiety1 (chief complaint) Abdominal painGeneralized anxiety disorder Mar-0 7-201 6 Kwabena Bear. [address], [place], [place], [address] , [place]. [phone] Referring Provider: Roger Knox [address], [place], [place], [address]. tel:[phone] OFFICE/OUTPA TIENT VISIT, EST [facility], [address], [place], [place], [address], [place] tel:[phone] [facility] vaginal discharge1 (chief complaint)ch roinc pain (chief complaint)an xiety1 (chief complaint) Other specified noninflammatory disorders of vaginaGeneralized anxiety disorderChronic pain syndrome 6 Kwabena Bear. [address], [place], [place], [address] , [place]. [phone] Referring Provider: Roger Knox [address], [place], [place], [address]. tel:[phone] PREV VISIT, EST, AGE 18-39 [facility], [address], [place], [place], [address], [place] tel:[phone] [facility] Physical (chief complaint) Encntr for general adult medical exam w/o abnormal findings 6 Kwabena Bear. [address], [place], [address] , [place]. tel:[phone] Referring Provider: Roger Knox [address], [place], [place], [address]. tel:[phone] OFFICE/OUTPA TIENT VISIT, EST [facility], [address], [place], [address], [place] tel:[phone] [facility] anxiety1 (chief complaint)ab d pain1 (chief complaint) Abdominal painGeneralized anxiety disorderAnxiolyti c dependence 5 Kwabena Bear. [address], [place], [place], [address] , [place]. [phone] Referring Provider: Chema Yuan, [address], [place], [place], [address]. tel:[phone] OFFICE/OUTPA TIENT VISIT, [facility], [address], [place], [place], [address], [place] tel:[phone] [facility] anxiety1 (chief complaint)ab d pain (chief complaint) Generalized Anxiety DisorderGeneraliz ed abdominal pain Nov 0-201 5 Kwabena Bear. [address], [place], [place], [address] , [place]. tel:[phone] Referring Provider: Roger Knox [address], [place], [address]. tel:[phone] OFFICE/OUTPA TIENT VISIT, [facility], [address], [place], [address], [place] tel:[phone] [facility] anxiety1 (chief complaint)ab dominal pain1 (chief complaint) Generalized anxiety disorderGeneraliz ed abdominal pain 4-201 5 Kwabena Bear. [address], [place], [address] , [place]. tel:[phone] Referring Provider: Roger Knox [address], [place], [address]. tel:[phone] OFFICE/OUTPA TIENT VISIT, [facility], [address], [place], [address], [place] tel:[phone] [facility] sinusitis (chief complaint)si nusitis (chief complaint)an xiety (chief complaint)ab dominal pain (chief complaint) Acute sinusitisGenerali zed Anxiety DisorderAbdominal pain, unspecified site 6 5 Kwabena Bear. [address], [place], [address] , [place]. tel:[phone] Referring Provider: Roger Knox [address], [place], [place], [address]. tel:[phone] OFFICE/OUTPA TIENT VISIT, [facility], [address], [place], [address], [place] tel:[phone] [facility] pelvic pain (chief complaint)ab dominal pain (chief complaint)ab domen (chief complaint)pe lvic fluid (chief complaint) Abdominal painOvarian cystEnteritis Kash-2 5 Kwabena Bear. [address], [place], [place], [address] , [place]. tel:[phone] Referring Provider: Roger Knox [address], [place], [address]. tel:[phone] OFFICE/OUTPA TIENT VISIT, [facility], [address], [place], [place], [address], [place] tel:[phone] [facility] abdominal pain (chief complaint)HL P (chief complaint)sk in itching (chief complaint) Abdominal PainOpioid type dependence, unspecified useRash and other nonspecific skin eruptionOther and unspecified hyperlipidemia Jan-3 5 Kwabena Bear. [address], [place], [address] , [place]. tel:[phone] Referring Provider: [address], [place], [place], [address]. tel:[phone] OFFICE/OUTPA TIENT VISIT, [facility], [address], [place], [place], [address], [place] tel:[phone] [facility] chronic pain (chief complaint)an xiety (chief complaint)va ginal yesats (chief complaint) Abdominal PainOpioid type dependence, unspecified useGeneralized anxiety disorderLeukorrhe a, not specified as infective Jan-0 5 Kwabena Bear. [address], [place], [place], [address] , [place]. tel:[phone] Referring Provider: Roger Knox [address], [place], [place], [address]. tel:[phone] OFFICE/OUTPA TIENT VISIT, [facility], [address], [place], [place], [address], [place] tel:[phone] [facility] abdominal pain (chief complaint)br east nodule (chief complaint)HL P (chief complaint) Dietary surveillance and counselingAbdomin al PainOther and unspecified hyperlipidemia 5 Kwabena Bear. [address], [place], [place], [address] , [place]. tel:[phone] Referring Provider: Roger Knox [address], [place], [place], [address]. tel:[phone] OFFICE/OUTPA TIENT VISIT, EST [facility], [address], [place], [address], [place] tel:[phone] [facility] sinus (chief complaint)ab dominal pain (chief complaint)an xiety (chief complaint) Dietary surveillance and counselingAbdomin al PainGeneralized anxiety disorderUnspecifi ed sinusitis (chronic) 5 Kwabena Bear. [address], [place], [place], [address] , [place]. tel:[phone] Referring Provider: Roger Knox [address], [place], [place], [address]. tel:[phone] PREV VISIT, EST, AGE 18-39 [facility], [address], [place], [address], [place] tel:[phone] [facility] Physical (chief complaint) Dietary surveillance and counselingRoutine Medical ExamRoutine Medical Exam 4 Kwabena Nieto [address], [place], [place], [address] , [place]. tel:[phone] Referring Provider: Roger Knox [address], [place], [address]. tel:[phone] OFFICE/OUTPA TIENT VISIT, EST [facility], [address], [place], [place], [address], [place] tel:[phone] [facility] abdominal pain (chief complaint)le g numbness (chief complaint)HL P (chief complaint) Dietary surveillance and counselingAbdomin al PainDisturbance of skin sensationOther and unspecified hyperlipidemia 4 Kwabena Bear. [address], [place], [place], [address] , [place]. tel:[phone] Referring Provider: Roger Knox [facility] A, [place], [place], [address]. tel:[phone] OFFICE/OUTPA TIENT VISIT, [facility], [address] [place], [address], [place] tel:[phone] [facility] abdominal pain (chief complaint)ba ck pain (chief complaint)nu mnbess (chief complaint)an xiety (chief complaint)he adache (chief complaint)ra sh (chief complaint) Dietary surveillance and counselingAbdomin al PainGeneralized anxiety disorderHeadacheD isturbance of skin sensation 4 Kwabena Bear. [address] [facility] [address], [place], [place], [address] , [place]. tel:[phone] Referring Provider: Roger Knox [facility] A, [place], [place], [address]. tel:[phone] OFFICE/OUTPA TIENT VISIT, [facility], [address] [place], [address], [place] tel:[phone] [facility] abdominal pain (chief complaint)nu mbness (chief complaint) Dietary surveillance and counselingAbdomin al PainDisturbance of skin sensationLumbago 4 Kwabena Bear. [address], [place], [place], [address] , [place]. tel:[phone] Referring Provider: Roger Knox [facility] A, [place], [place], [address]. tel:[phone] OFFICE/OUTPA TIENT VISIT, [facility], [address], [address], [place] tel:[phone] [facility] numbness (chief complaint)ba ck pain (chief complaint)ab dominal pain (chief complaint)re nal CA (chief complaint) LumbagoDisturbanc e of skin sensationAbdomina l PainDietary surveillance and counseling 4 Kwabena Bear. [address], [place], [place], [address] , [place]. tel:[phone] Referring Provider: Roger Knox [address], [place], [place], [address]. tel:[phone] OFFICE/OUTPA TIENT VISIT, [facility], [address], [place], [address], [place] tel:[phone] [facility] abdominal pain (chief complaint)nu mbness (chief complaint) Dietary surveillance and counselingDietary surveillance and counselingAbdomin al PainDisturbance of skin sensation 4 Kwabena Bear. [address], [place], [place], [address] , [place]. tel:[phone] Referring Provider: Roger Knox [address], [place], [place], [address]. tel:[phone] OFFICE/OUTPA TIENT VISIT, [facility], [address], [place], [place], [address], [place] tel:[phone] [facility] abdominal pain (chief complaint)Le ft upper leg numbness (chief complaint) Dietary surveillance and counselingAbdomin al PainDisturbance of skin sensation 4 Kwabena Bear. [address], [place], [address] , [place]. tel:[phone] Referring Provider: Roger Knox [address], [place], [place], [address]. tel:[phone] OFFICE/OUTPA TIENT VISIT, [facility], [address], [place], [place], [address], [place] tel:[phone] [facility] abdominal pain (chief complaint) Abdominal PainAcute pancreatitis 4 Kwabena Bear. [address], [place], [address] , [place]. tel:[phone] Referring Provider: Roger Knox [address], [place], [place], [address]. tel:[phone] OFFICE/OUTPA TIENT VISIT, [facility], [address], [place], [place], [address], [place] tel:[phone] [facility] allergy (chief complaint)ab dominal pain (chief complaint)ra sh (chief complaint) Dietary surveillance and counselingAllergi c rhinitis, cause unspecifiedAbdomi nal PainRash and other nonspecific skin eruption March-0 4 Kwabena Bear. [address], [place], [place], [address] , [place]. tel:[phone] Referring Provider: Roger Knox [address], [place], [place], [address]. tel:[phone] OFFICE/OUTPA TIENT VISIT, [facility], [address], [place], [place], [address], [place] tel:[phone] [facility] abdominal pain (chief complaint)ra sh (chief complaint)br east lump (chief complaint) Dietary surveillance and counselingRash and other nonspecific skin eruptionLump or mass in breastAbdominal Pain 4 Kwabena Bear. [address], [place], [address] , [place]. [phone] Referring Provider: Roger Knox [address], [place], [address]. tel:[phone] OFFICE/OUTPA TIENT VISIT, [facility], [address], [place], [place], [address], [place] tel:[phone] [facility] breast nodule (chief complaint)ab dominal pain (chief complaint)br east rash (chief complaint) Dietary surveillance and counselingLump or mass in breastRash and other nonspecific skin eruptionAbdominal Pain 4 Kwabena Dur[address], [place], [place], [address] , [place]. tel:[phone] Referring Provider: Roger Knox [address], [place], [place], [address]. tel:[phone] OFFICE/OUTPA TIENT VISIT, [facility], [address], [place], [place], [address], [place] tel:[phone] [facility] abdominal pain (chief complaint)an xiety (chief complaint)to bacco (chief complaint) Dietary surveillance and counselingAbdomin al PainGeneralized anxiety disorderTobacco Abuse 4 Kwabena Bear. [address], [place], [address] , [place]. [phone] Referring Provider: Roger Knox [address], [place], [place], [address]. tel:[phone] OFFICE/OUTPA TIENT VISIT, [facility], [address], [place], [place], [address], [place] tel:[phone] [facility] hematuria (chief complaint)ab dominal pain (chief complaint)to bacco (chief complaint)an xiety (chief complaint) Dietary surveillance and counselingHEMATUR IA NOSAbdominal PainGeneralized anxiety disorder 4 Kwabena Bear. [address], [place], [place], [address] , [place]. [phone] Referring Provider: [address], [place], [address]. tel:[phone] OFFICE/OUTPA TIENT VISIT, [facility], [address], [place], [address], [place] tel:[phone] [facility] sinus (chief complaint)ab dominal pain (chief complaint) Dietary surveillance and counselingSinusit is, AcuteAbdominal Pain 3 Kwabena Bear. [address], [place], [address] , [place]. [phone] Referring Provider: Roger Knox [address], [place], [place], [address]. tel:[phone] PREV VISIT, EST, AGE 18-39 [facility], [address], [place], [place], [address], [place] tel:[phone] [facility] PHysical (chief complaint) Routine Medical ExamRoutine Medical Exam 3 Kwabena Bear. [address], [place], [place], [address] , [place]. tel:[phone] Referring Provider: Roger Knox [address], [place], [address]. tel:[phone] OFFICE/OUTPA TIENT VISIT, [facility], [address], [place], [place], [address], [place] tel:[phone] [facility] abdominal pain (chief complaint)GE RD (chief complaint) Dietary surveillance and counselingAbdomin al PainGERD 3 Kwabena Nieto [address], [place], [place], [address] , [place]. [phone] Referring Provider: Roger Knox [address], [place], [place], [address]. tel:[phone] OFFICE/OUTPA TIENT VISIT, EST [facility], [address], [place], [address], [place] tel:[phone] [facility] UTI (chief complaint)ab dominal pain (chief complaint) Dietary surveillance and counselingAbdomin al PainUrinary Tract Infection 3 Kwabena Bear. [address], [place], [address] , [place]. [phone] Referring Provider: Roger Knox [address], [place], [place], [address]. tel:[phone] OFFICE/OUTPA TIENT VISIT, EST [facility], [address], [place], [place], [address], [place] tel:[phone] [facility] abnormal mammogram (chief complaint)ab dominal pain (chief complaint)GE RD (chief complaint) Abdominal PainUnspecified abnormal mammogramGERD 3 Kwabena Bear. [address], [place], [place], [address] , [place]. tel:[phone] Referring Provider: Roger Knox [address], [place], [place], [address]. tel:[phone] OFFICE/OUTPA TIENT VISIT, [facility], [address], [place], [address], [place] tel:[phone] [facility] abdominal pain (chief complaint) Abdominal Pain 3 Kwabena Bear. [address], [place], [address] , [place]. [phone] Referring Provider: Roger Knox [address], [place], [place], [address]. tel:[phone] OFFICE/OUTPA TIENT VISIT, [facility], [address], [place], [place], [address], [place] tel:[phone] [facility] Headache (chief complaint)ab dominal pain (chief complaint)br east cyst (chief complaint) Abdominal PainHeadacheLump or mass in breast 3 Kwabena Bear. [address], [place], [address] , [place]. [phone] Referring Provider: Roger Knox [address], [place], [address]. tel:[phone] OFFICE/OUTPA TIENT VISIT, [facility], [address], [place], [address], [place] tel:[phone] [facility] headache (chief complaint)ab dominal pain (chief complaint)br east lump (chief complaint) HeadacheAbdominal PainGeneralized anxiety disorderLump or mass in breast 3 Kwabena Bear. [address], [place], [address] , [place]. [phone] Referring Provider: Roger Knox [address], [place], [place], [address]. tel:[phone] OFFICE/OUTPA TIENT VISIT, [facility], [address], [place], [address], [place] tel:[phone] [facility] abdominal pain (chief complaint)Pa lpitation (chief complaint)He adache (chief complaint) Abdominal PainGeneralized anxiety disorderHeadacheP alpitations 3 Kwabena Bear. [address], [place], [address] , [place]. tel:[phone] Referring Provider: Chema Yuan, [address], [place], [place], [address]. tel:[phone] OFFICE/OUTPA TIENT VISIT, [facility], [address], [place], [address], [place] tel:[phone] [facility] Headache (chief complaint)pa lpitations (chief complaint)an xiety (chief complaint) Abdominal PainGeneralized anxiety disorderPalpitati ons 3 Kwabena Bear. [address], [place], [place], [address] , [place]. tel:[phone] Referring Provider: Chema Yuan, [address], [place], [place], [address]. tel:[phone] OFFICE/OUTPA TIENT VISIT, [facility], [address], [place], [address], [place] tel:[phone] [facility] palpitation (chief complaint) Palpitations 3 Kwabena Bear. [address], [place], [place], [address] , [place]. tel:[phone] Referring Provider: Chema Yuan, [address], [place], [place], [address]. tel:[phone] OFFICE/OUTPA TIENT VISIT, [facility], [address], [place], [address], [place] tel:[phone] [facility] abdominal pain (chief complaint)He adache (chief complaint) Abdominal PainHeadache 3 Kwabena Bear. [address], [place], [place], [address] , [place]. tel:[phone] Referring Provider: Roger Knox [address], [place], [place], [address]. tel:[phone] OFFICE/OUTPA TIENT VISIT, [facility], [address], [place], [place], [address], [place] tel:[phone] [facility] abdominal pain (chief complaint)so re throat (chief complaint) Acute upper respiratory infections of other multiple sitesAbdominal Pain Jan-0 3 Kwabena Bear. [address], [place], [place], [address] , [place]. tel:[phone] Referring Provider: Chema Yuan, [address], [place], [place], [address]. tel:[phone] OFFICE/OUTPA TIENT VISIT, [facility], [address], [place], [address], [place] tel:[phone] [facility] UTI (chief complaint)Si nus (chief complaint)ab dominal pain (chief complaint)an xiety (chief complaint) Urinary Tract InfectionAbdomina l PainAcute maxillary sinusitisGenerali zed anxiety disorder 3 Kwabena Bear. [address], [place], [address] , [place]. tel:[phone] Referring Provider: Roger Knox [address], [place], [place], [address]. tel:[phone] OFFICE/OUTPA TIENT VISIT, [facility], [address], [place], [place], [address], [place] tel:[phone] [facility] abdominal pain (chief complaint)si nus infection (chief complaint)an xiety (chief complaint) Abdominal PainAcute maxillary sinusitisGenerali zed anxiety disorder 3 Kwabena Bear. [address], [place], [place], [address] , [place]. tel:[phone] Referring Provider: Roger Knox [address], [place], [place], [address]. tel:[phone] OFFICE/OUTPA TIENT VISIT, [facility], [address], [place], [address], [place] [phone] [facility] abdominal pain (chief complaint) Abdominal Pain 2 Kwabena Bear. [address], [place], [address] , [place]. [phone] Referring Provider: Roger Knox [address], [place], [place], [address]. tel:[phone] OFFICE/OUTPA TIENT VISIT, [facility], [address], [place], [address], [place] [phone] [facility] abdominal pain (chief complaint) Dietary surveillance and counselingAbdomin al Pain 2 Kwabena [address]. [address], [address], [place], [place], [id number] , [place]. [phone] Referring Provider: Roger [address], [place], [place], [id number]. tel:[phone] OFFICE/OUTPA TIENT VISIT, [facility], [address], [place], [place], [id number], [place] [phone] [facility] abdominal pain (chief complaint)hy perlipidemia (chief complaint) Dietary surveillance and counselingColitis , enteritis, and gastroenteritis of presumed infectious originOther and unspecified hyperlipidemiaNeo plasm of uncertain behavior of adrenal glandCongenital single renal cyst 2 [address]. [address], [address], [place], [place], [id number] , [place]. [phone] Referring Provider: Roger Knox [address], [place], [place], [id number]. tel:[phone] Family History Family Member Type Diagnosis Age At Onset Father Problem (finding) Alive and well Brother Problem (finding) Alive and well Mother Problem (finding) Alive and well Payers Payer name Insurance type Covered republican ID Martinez elizondo(s) No Information Social History Type Description Quantity Date Captured Comments Alcohol Use Details No Caffeine Use Details Unknown Tobacco Use Status Cigarette smoker Smoking Status Heavy tobacco smoker Smoking Tobacco Use Details Cigarette: No Details Available Cigarette: 1 Packs per day Sex Female Vital Signs Date / Time: Height Weight BMI Pulse Rate Blood Pressure Temperature Respiratory Rate Body Surface Area Head Circumference BMI percentile Pulse Ox Inhaled Ox 10:09 AM 157.48 cm 124.80 lbs 22.8 3 kg/m eter (2) 93 /min 108/66 mm[Hg] 98.4 F 18 /min Chief Complaint And Reason For Visit From encounter dated '05/22/2016 08:30'. chronic pain (chief complaint). Description: Pt has chronic abdominal pain Pt deneis any worsening pain. 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 Pt wants to take 4 norco per day. anxiety1 (chief complaint). Description: Pt has chronic anxiety. Pt denies any depression or any suicidal thought. Pt stopped celexa since not working. Pt only takes xanax now. Pt also missed her psychiatry appointment due to work. Pt denies any crying spells Plan Of Treatment Date Type Action Status Goal Depression screening. Due on due Goal Pap/HPV testing. Due on due Goal Tdap. Due on due Goal Td vaccine. Due on 16 due Goal Tdap. Due on due Goal Pap/HPV testing. Due on due Goal Depression screening. Due on due Goal Td vaccine. Due on 16 due Goal Td vaccine. Due on 16 due Goal Pap/HPV testing. Due on due Goal Depression screening. Due on due Goal Tdap. Due on due Goal Tdap. Due on due Goal Pap/HPV testing. Due on due Goal Td vaccine. Due on 16 due Goal Depression screening. Due on due Goal Depression screening. Due on due Goal Pap/HPV testing. Due on due Goal Td vaccine. Due on due Goal Tdap. Due on due Goal Depression screening. Due on due Goal Pap/HPV testing. Due on due Goal Tdap. Due on due Goal Td vaccine. Due on 16 due Goal Depression screening. Due on due Goal Tdap. Due on due Goal Td vaccine. Due on 16 due Goal Pap/HPV testing. Due on due Goal Tdap. Due on due Goal Pap/HPV testing. Due on due Goal Depression screening. Due on due Goal Td vaccine. Due on 15 due Goal Depression screening. Due on due Goal Pap/HPV testing. Due on due Goal Td vaccine. Due on 15 due Goal Tdap. Due on due Goal Tdap. Due on due Goal Depression screening. Due on due Goal Pap/HPV testing. Due on due Goal Td vaccine. Due on due Goal Tdap. Due on due Goal Td vaccine. Due on due Goal Pap/HPV testing. Due on due Goal Depression screening. Due on due Goal Depression screening. Due on due Goal Pap/HPV testing. Due on due Goal Td vaccine. Due on due Goal Tdap. Due on due Goal Tobacco cessation counseling completed Goal Tobacco cessation counseling completed Goal Tobacco cessation counseling completed Goal Tobacco cessation counseling completed Goal Tobacco cessation counseling completed Goal Tobacco cessation counseling completed Goal Tobacco cessation counseling completed Goal Tobacco cessation counseling completed Goal Tobacco cessation counseling completed Goal Tobacco cessation counseling completed Goal Tobacco cessation counseling completed Goal Tobacco cessation counseling completed Goal Tobacco cessation counseling completed Goal Tobacco cessation counseling completed Goal Tobacco cessation counseling completed Goal Tobacco cessation counseling completed Goal Tobacco cessation counseling completed Goal Tobacco cessation counseling completed Goal Tobacco cessation counseling completed Goal Tobacco cessation counseling completed Goal Tobacco cessation counseling completed Goal Tobacco cessation counseling completed Goal Tobacco cessation counseling completed Goal Tobacco cessation counseling completed Goal Tobacco cessation counseling completed Goal Tobacco cessation counseling completed Goal Tobacco cessation counseling completed Goal Tobacco cessation counseling completed Goal Tobacco cessation counseling completed Goal Tobacco cessation counseling completed Goal Tobacco cessation counseling completed Goal Tobacco cessation counseling completed Goal Tobacco cessation counseling completed Referral Ordered: KUB XRAY ordered Referral Ordered: Physical Therapy (related to Lumbago) ordered Referral Ordered: MOTOR NERVE CONDUCTION TEST ordered Referral Referred To: Physical Therapy Ordered: Referral: Physical Therapy. ordered Referral Ordered: MRI LUMBAR SPINE W/O DYE ordered Referral Ordered: US VENOUS DOPPLER ordered Referral Ordered: NUC MED HIDA (HEPATOBILIARY) SCAN ordered Referral Ordered: Plastic Surg (related to Lump or mass in breast) ordered Referral Ordered: Referral: Plastic Surg. Evaluate and treat. ordered Referral Ordered: MAMMOGRAM, BOTH BREASTS ordered Referral Ordered: ELECTROCARDIOGRAM, COMPLETE ordered Referral Ordered: MRI BRAIN W/O & W/DYE ordered Referral Ordered: US EXAM, ABDOM, COMPLETE ordered Referral Ordered: Gastroentergy (related to Colitis, enteritis, and gastroenteritis of presume) ordered Referral Ordered: MRI ABDOMEN W/O & W/DYE ordered Referral Ordered: US KIDNEY ordered Referral Ordered: Referral: Gastroentergy. Evaluate and treat. ordered History Of Present Illness Encounter Date Complaint History Of Prese nt Illness chronic pain Pt has chronic a bdominal pain Pt deneis any worsening pain. 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 Pt wants to take 4 norco per day. anxiety1 Pt has chronic a nxiety. Pt denies any depression or any suicidal thought. Pt stopped celexa since not working. Pt only takes xanax now. Pt also missed her psychiatry appointment due to work. Pt denies any crying spells anxiety1 Pt has chronic a nxiety and depression. pt takes celexa and xanax and doing ok. Pt denies any suicidal or homicidal thought. Pt denies any crying spells abd pain Pt has chronic a bdominal pain. Pt denies any acute worsening pain. Pt denies any nauea, vomiting. diarrhea anxiety1 Pt has chronic a nxiety and depression. Pt takes celexa and xanax. Pt dneies any suicidal or homicdial thought Pt denie sany cryng spells chronic pain Pt has chronic a bd apin. Pt denies any worsening pain. Pt takes norco for pain PRN. HLP Pt has HLP. Pt i s trying low fat and low carb diet. vitamin D Pt has low vitam in D. Pt denies any history of fx anxiety1 Pt has chronic a nxiety and depression. Pt takes celexa and xanax. Pt doing ok. Pt denies any suicidal or homicidal thought ABd pain Pt has chronic a bdominal pain. Pt takes norco for pain. Pt denies any nausea, vomiting or worsening pain abd pain Pt has chronic a bdominal pain. Pt is opioid dependent. Pt denies any worsening pain Pt denies any nause, vomiting, diarhrea anxiety1 Pt has chronic a nxiety and depression. Pt takes celexa and xanax. Pt denies any sucidal or homicdial thought. Pt denies any crying spells vaginal discharge1 Pt c/o vagina l discharge with odor for 10 days. Pt c/o mild low pelvic pain. Pt took some flagyl from 2011 which helped but is causing her stomach upset. Pt denies any chance for STD. Pt has not been sexualy active and she had negative STD screening after last sex. Pt denies any vaginal bleeding, NO nauea, vomiting chroinc pain PT has chronic a bdomial apin due to adhension and no change in quality of pain. Pt denies any worsening pain anxiety1 Pt has chronic a nxiety and depression. Pt takes celexa and xanax. Pt denies any suiciadl or homicdial thought. Pt denies any crying spells Physical Pt needs annual physical. Pt has chronic anxiety. Pt is taking celexa. Pt denies any depression or any suicidal thought. Pt has severe anxiety. Pt used to take 8 mg xanax daily Pt denies any crying spells. Pt denies any feeling of hopelessness. pt states that she is actually doing better and she started to exercise. Pt is doing counseling Pt has chronic abdominal pain. Pt has chronic adhension. Pt deneis any nausea, vomiting, diarrhea. Pt has chronic crampy pain. Pt denies any other complaints anxiety1 Pt has chronic a nxziety and panic attacks. Pt has chronic depression but she is noncompliant with lexapro. Pt states that she is not taking lexapro anymore. Pt states that she is afraid of leaving her hosue due to anxiety, Pt used to take 2 mg xanax qid. Pt currently taking xanax 1 mg TID. Pt denies any cyring spells. Pt dneies any suicidal or homicidal thought. abd pain1 Pt has chornic a bd pain. Pt has hisotory of multiple abd surgery, Pt has adhension. pt states that she feels bloated and her abd pain is worse during the last sevearl days., Pt denies any nausea, vomitng, diarrhea. Pt denies any fever chilll. Pt c/o sharp diffuse abdominal pain, which is worse during last several weeks anxiety1 Pt has chronic a nxiety and depression. Pt is taking lexapro and xanax now. Pt was dischaged from her previous psychiatrist who was giving her 8 mg xanax daily. Pt has been only taking 3 mg xanax daily and she feels veyr anxious, unable to leave the house and feeling irritable and upset all the time. Pt also has crying spells. Pt denies any suicidal thought abd pain Pt has chronic s harp abdominal pain due to adhension. pt takes norco for pain Pt denies any worsening pain anxiety1 PT has chronic a nxiety and depression. Pt takes lexapro but has not noticed much improvement Pt takes xanax chronically and now she was fired by her psychiatrist since she missed her appointment once. pt denies any suicidal thought abdominal pain1 Pt has chronic a bdomina pain. Pt had mulitple surgeries. Pt has adhension. Pt takes norco for pain. Pt denies any worsening pain Pt has sharp pain sinusitis sinusitis Pt c/o acute sin us pain, purulent drainage, sore throat, coughing for two weeks. Pt denies any fever Pt denies any headache. Pt denies any recent travel anxiety The patient pres ents with anxious/fearful thoughts but denies fatigue. The patient denies any vomiting. Additional information: Pt has chrnoic anxiety. Pt denies any depression or any suicidal thought. Pt takes xanax QID from psychiarist. Pt has been sick and missed her psychiatry apponitment and she needs temporay refill of xanax. Pt also feels depressed lately. Pt has crying spells. Pt denies any suicidal thought. abdominal pain Associated sympt oms include back pain. Pertinent negatives include blood in stool, constipation, diarrhea, dyspnea, fever, heartburn, hematuria, rash, vaginal discharge, vomiting and weight loss.Additional information:Pt has chornic abdominal pain. Pt denies any worsening pain. Pt has sharp pain all the time. Pt has history of renal CA. pt has adhension. abdomen Pt has chronic a bdominal pain. PT had some CT which showed nonspecific enteritis. Pt was evaluatd by surgeon in hospital and was told nothing to worry about. Pt denies any nausea, vomiting, diarrhea. Pt denies any worsening abdominal pain pelvic pain pelvic fluid Pt has chronic a nd intermittent low pelvic pain. Pt went to ER twice recently and she was found to have fluid in her pelvic area Pt was recommend surgery in hospital for removal of fluid but she refused. Pt has persistent pelvic pain which is at her baseline now. Pt denies any worsening pain abdominal pain Instructions Date Instruction Additional Infor delfino Physical activity counseling Rel ated to Dietary surveillance counseling Decrease caloric intake Related to Dietary surveillance counseling Physical activity counseling Rel ated to Dietary surveillance counseling Decrease caloric intake Related to Dietary surveillance counseling Dietary counseling Related to Di etary surveillance counseling Decrease caloric intake Related to Dietary surveillance counseling Dietary counseling Related to Di etary surveillance counseling Decrease caloric intake Related to Dietary surveillance counseling Dietary counseling Related to Di etary surveillance counseling Decrease caloric intake Related to Dietary surveillance counseling Dietary counseling Related to Di etary surveillance counseling Decrease caloric intake Related to Dietary surveillance counseling Dietary counseling Related to Di etary surveillance counseling Decrease caloric intake Related to Dietary surveillance counseling Dietary counseling Related to Di etary surveillance counseling Decrease caloric intake Related to Dietary surveillance counseling Dietary counseling Related to Di etary surveillance counseling Decrease caloric intake Related to Dietary surveillance counseling Dietary counseling Related to Di etary surveillance counseling Decrease caloric intake Related to Dietary surveillance counseling Dietary counseling Related to Di etary surveillance counseling Decrease caloric intake Related to Dietary surveillance counseling Decrease caloric intake Related to Dietary surveillance counseling Dietary counseling Related to Di etary surveillance counseling Dietary counseling Related to Di etary surveillance counseling Decrease caloric intake Related to Dietary surveillance counseling Dietary counseling Related to Di etary surveillance counseling Decrease caloric intake Related to Dietary surveillance counseling Dietary counseling Related to Di etary surveillance counseling Decrease caloric intake Related to Dietary surveillance counseling Dietary counseling Related to Di etary surveillance counseling Decrease caloric intake Related to Dietary surveillance counseling Dietary counseling Related to Di etary surveillance counseling Decrease caloric intake Related to Dietary surveillance counseling Perform monthly self breast examinations. Related to Lump or mass in breast Quit smoking. Related to Lump or mass in breast Decrease caloric intake Related to Dietary surveillance counseling Dietary counseling Related to Di etary surveillance counseling Dietary counseling Related to Di etary surveillance counseling Decrease caloric intake Related to Dietary surveillance counseling Assessments Type Assessment Date assessment Chronic pain syndrome 6 assessment Generalized anxiety disorder Apr Mental Status Date Cognitive Assessment Orientation - [place] ed to time, place, person, situation.
--- OUTSIDE RECORDS SUMMARY | 2025-05-16 08:20 | XMS_ITS ---
Author Organization [facility] Address [address] [address] Care Team Providers Care Senior Bioinformatics Specialist Name Role Phone Rosanna Soliz Primary Care Provider REASON FOR VISIT [facility] telehealth Pt at Home, Provider at [facility] Encounters Encounter Location Date Provider Diagnosis [facility] [address] [place] [address] [place] [address] 05/16/2025 Rosanna Soliz Plan Of Treatment Next Appt Details Provider Name:Rosanna Soliz, 09/01/2025 01:20:00 PM, [address] , [address], [place], [address], Progress Notes * Bernarda ARSHAD MDOB:1980 (44 yo F)Acc No.[id number]:05/16/2025 UNLOCKED PROGRESS NOTE Patient: Jason Bernarda delacruz Provider: MARISOL AKHTAR :1980 A ge:44 Y S ex:Female Date:05/16/2025 [facility] [facility] Subjective: * Chief Complaints: * E [facility] telehealth Pt at Home, Provider at [facility] * Electronic signature of MARISOL Willis ra on 07/20/2025 at 01:52 PM CDT Sign off status: Pending Visit Status: R /S (Rescheduled) * Provider: MARISOL AKHTAR Date: 0 05/16/2025 Generated for Sheyla huertas/Braden/Andrew on: 0 07/20/2025 01:52 PM CDT
--- OUTSIDE RECORDS SUMMARY | 2025-05-20 10:00 | XMS_ITS ---
Author Organization [facility] Address [address] [address] Care Team Providers Care Compliance Reviewer Name Role Phone Rosanna Soliz Primary Care Provider REASON FOR VISIT [facility] telehealth Pt at Home, Provider at [facility] Medications Medication SIG (Take, Route, Frequency, Duration) [...] Duration: 30 days forty five 03/21/2025 Active [place] 10-325 MG take 1 tablet by ora [...] Encounters Encounter Location Date Provider Diagnosis [address] [address] 05/20/2025 Rosanna Soliz Plan Of Treatment Next Appt Details Provider Name:Rosanna Soliz, 09/01/2025 01:20:00 PM, [address] [facility], [address], [place], [address], Progress Notes * Bernarda ARSHAD MDOB:1980 (44 yo F)Acc No.[id number]:05/20/2025 UNLOCKED PROGRESS NOTE Patient: Bernarda Man Provider: MARISOL AKHTAR :1980 A ge:44 Y S ex:Female Date:05/20/2025 Address:[address] [place], [place] [address] Subjective: * Chief Complaints: * E CW telehealth Pt at Home, Provider at [facility] * Medications: T akingAdderall 20 MG Tablet [...] capsule with food Orally Once a day [place] 10-325 MG take 1 tablet by oral [...] with food Orally Once a day Taking [place] 10- 325 MG take 1 tablet by oral route every 4- 6 hours as needed for pain Oral , Notes to Pharmacist: ([facility])Taking Xanax 2 MG Tablet take 1 tablet (2MG) by oral route 4 times every day as needed Oral Taking Zantac 150 MG take 1 tablet (150MG) by oral route 2 times every day Oral , Notes to Pharmacist: ([facility]) * Electronic signature of MARISOL Willis ra on 07/20/2025 at 01:52 PM CDT Sign off status: Pending Visit Status: N /S (No-Show) * Provider: MARISOL AKHTAR Date: 0 05/20/2025 Generated for Sheyla huertas/Braden/Andrew on: 0 07/20/2025 01:52 PM CDT
--- OUTSIDE RECORDS SUMMARY | 2025-07-20 13:52 | XMS_ITS | Patient Health Record ---
Author Organization [facility] [employer] Address [address] [address] Care Team Providers Care Solidworks Mechanical Designer Name Role Phone Rosanna Soliz Primary Care Provider Alyssa Ramirez Unavailable [phone] Allergies Allergen (clinical drug ingredient) Drug/Non Drug [...] times every day Oral ([facility]) 07/30/2013 Active [place] 10-325 MG take 1 tablet by ora l route every 4- 6 hours as needed for pain Oral ([facility]) Active Adderall 20 MG Tablet 1/2 tab Orally thr ee times daily; Duration: 30 days forty five 05/31/2025 Active Problems Problem Type SNOMED Code ICD Code Onset Dates Problem Status W/U Status Risk Notes Problem Panic disorder without agoraphobia (99164166) Panic disorder without agoraphobia (300.01) 07/30/20 13 Active confirmed ([facility] ) Added By: Priscilla Tyler Problem Generalized anxiety disorder (58420241) NADIR (generalized anxiety disorder) (F41.1) Active confirmed Problem Attention deficit hyperactivity disorder (189964715) Attention deficit hyperactivity disorder (ADHD), combined type [...] 11/01/2024 Encounters Encounter Location Date Provider Diagnosis [facility] [address] [place] [address] 11/01/2024 Rosanna Soliz NADIR (generalized anxiety disorder) F41.1 and Attention deficit hyperactivity disorder (ADHD), combined type F90.2 [facility] [address] [place] [address] 01/17/2025 Rosanna Soliz Attention deficit hyperactivity disorder (ADHD), combined type F90.2 and NADIR (generalized anxiety disorder) F41.1 [facility] [address] [place] [address] 02/21/2025 Rosanna Soliz NADIR (generalized anxiety disorder) F41.1 and Attention deficit hyperactivity disorder (ADHD), combined type F90.2 [facility] [address] [place] [address] 05/31/2025 Rosanna Soliz Attention deficit hyperactivity disorder (ADHD), combined type F90.2 and NADIR (generalized anxiety disorder) F41.1 [facility] [place] [address] 09/22/2024 Rosanna Soliz [facility] [address] [place] [address] 10/25/2024 Rosanna Soliz [facility] [address] [place] [address] 11/11/2024 [facility] [address] [place] [address] 03/28/2025 Rosanna Soliz Attention deficit hyperactivity disorder (ADHD), combined type F90.2 and NADIR (generalized anxiety disorder) F41.1 [facility] [address] [place] [address] 04/14/2025 Rosanna Soliz [facility] [address] [place] [address] 04/25/2025 [facility] [address] [place] [address] 05/20/2025 Rosanna Soliz [facility] [address] [place] [address] 05/23/2025 Alyssa Ramirez NADIR (generalized anxiety disorder) [...] Details Provider Name:Rosanna Soliz, 09/01/2025 01:20:00 PM, [facility] [place], [address], Insurance Providers Payer Name Payer Address Payer Phone Subscriber Number Group Number Insured Name Patient Relationship to Insured Coverage Start Date Coverage End Date [facility] Ish[employer]el FQHC [address] [place] [phone] [id number] Bernarda Arshad Self - patient is the insured 4 [facility] Quiñones FFS [address] [place] [phone] [id number] Bernarda Arshad Self - patient is the insured 4 [facility] Qu[employer] Nonbillable [address] [place] [phone] [id number] Bernarda Arshad Self - patient is the insured 4 Medical (General) History Medical History History ICD Code Gallbladder removed April 2014 Left kidney removal(2008) Med_System: neoplastic; Disease: Cancer, renal Surgical History Surgery Date(Month/Year) TOTAL HYSTERECTOMY(01064) Hysterectomy, vaginal 2008
--- OUTSIDE RECORDS SUMMARY | 2025-07-20 13:53 | XMS_ITS | Clinical Summary ---
Author Organization [facility] Address [address] [place] [address] Phone Care Team Providers Care Cinema Or Theatre Manager Name Role Phone Lily Zapien MD Unavailable [...] on file Legal Sex Female 9:51 AM DOUGH PUNCHER Gender Identity Not on file Sexual Orientation Not on file Last Filed Vital Signs Vital Sign Reading Time Taken Comments Blood Pressure 120/74 11/03/2018 5:48 PM DOUGH PUNCHER Pulse 109 11/03/2018 5:48 PM DOUGH PUNCHER Temperature 36.6 C (97.9 F) 11/03/2018 5:48 PM DOUGH PUNCHER Respiratory Rate 18 11/03/2018 5:48 PM DOUGH PUNCHER Oxygen Saturation 98% 11/03/2018 5:48 PM DOUGH PUNCHER Inhaled Oxygen Concentration - - Weight 82.6 kg (182 lb) 11/03/2018 5:48 PM DOUGH PUNCHER Height 154.9 cm (5' 1) 11/03/2018 5:48 PM DOUGH PUNCHER Body Mass Index 34.39 11/03/2018 5:48 PM DOUGH PUNCHER Plan of Treatment Health Maintenance Due Date [...] age to complete this topic Insurance MEDICAID [place] Care Teams Cinema Or Theatre Manager Relationship Specialty Start Date End Date Lily Zapien MD [address] [facility] [address] [place], [place] [phone] Obstetrics & Gynecology 10/09/17
--- OUTSIDE RECORDS SUMMARY | 2025-07-20 13:53 | XMS_ITS | Clinical Summary ---
Author Organization [facility] Address [address] [place] [address] Care Team Providers Care Body Presser Name Role Phone J Carlos Hirsch MD Primary Care Provider [phone] Allergies Active Allergy Reactions Criticality Noted Date [...] Date Smoking Tobacco: Every Day Cigarettes 1 31.7 Started: 1994 Smokeless Tobacco: Never Tobacco Cessation:Ready to Q uit: Not Asked; Counseling Given: Not Answered Alcohol Use Standard Drinks/Week Comments Yes 0 (1 standard drink = 0.6 oz pur e alcohol) occasional Comments Unknown Sex and Gender Information Value Date Recorded Sex Assigned at Not on file 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
--- OUTSIDE RECORDS SUMMARY | 2025-07-20 13:53 | XMS_ITS | Clinical Summary ---
Author Organization [facility] [employer] Address [address] [place] [address] Care Team Providers Care Blood Coordinator Name Role Phone Yoel Watson MD Primary Care Provider [phone] Source Comments [facility] [employer],non-owned Affiliates and Associated Physician Practices is amultiple site organization consisting of ambulatory clinics and hospital sitesin [place], [place], [place] and [place]. This disclosure is being madepursuant to the Care Everywhere program and may not contain all information available regarding this patient. Last updated [employer] Allergies Active Allergy Reactions Criticality Noted Date [...] once daily Active Cholecalcifero l 1.25 MG (90083 UT) Take 1,000 Units by mouth every [...] Description 07/12/2025 1:15 PM CDT Office Visit [facility] - Neurosurgery [address] [place] [address] De Perez MD Spinal vascular malformation (HCC) (Primary Dx) 07/12/2025 11:29 AM CDT - 07/12/2025 11:59 PM CDT Hospital Encounter [facility] MRI [address] [place] [address] Discharge Disposition: Home or Self Care 07/12/2025 [...] on file Legal Sex Female 11:47 PM CLIENT SERVICES MANAGER Gender Identity Not on file Sexual Orientation [...] in the presence of Alexander Bartlett MD, (president commercial bank). > Interpreting Provider: Diana Coffey MD on [...] in the presence of Alexander Bartlett MD, (president commercial bank). > Interpreting Provider: Diana Coffey MD on 07/12/2025 3:56 PM us De Perez MD MR ORDERABLES Final Result * (ABNORMAL) RENAL FUNCTION PANEL (03/18/2024 2:56 AM CDT) BUN 14 7 - 26 mg/dL 03/18/2024 6:19 AM [facility] Creatinine 0.60 0.56 - 0.96 mg/dL 03/18/2024 6:19 AM [facility] Sodium 141 136 - 145 mmol/L 03/18/2024 6:19 AM [facility] Potassium 4.1 3.5 - 4.5 mmol/L 03/18/2024 6:19 AM [facility] Chloride 108(H) 98 - 107 mmol/L 03/18/2024 6:19 AM [facility] CO2 28 22 - 29 mmol/L 03/18/2024 6:19 AM [facility] Glucose 86 70 - 115 mg/dL 03/18/2024 6:19 AM [facility] Albumin 2.8(L) 3.4 - 5.0 g/dL 03/18/2024 6:19 AM [facility] Calcium 8.5 8.4 - 10.2 mg/dL 03/18/2024 6:19 AM [facility] Phosphorus 3.3 2.9 - 5.1 mg/dL 03/18/2024 6:19 AM CDT [facility] Anion Gap 5(L) 6 - 16 03/18/2024 6:19 AM CDT [facility] BUN/Creatinine Ratio 23 7 - 23 03/18/2024 6:19 AM CDT [facility] Osmolality Calculated 292 275 - 295 mOsm/kg 03/18/2024 6:19 AM T [facility] eGFR by CKD-EPI >90 >=90 mL/min/1.7 3 m2 03/18/2024 6:19 AM CDT [facility] Blood BLOOD SPECIMEN / Unknown Lab Venipuncture / Unknown 03/18/2024 2:56 AM CDT 03/18/2024 5:50 AM CDT Alexander Ramon MD LAB - CHEMISTRY ORDERABLES Final Result [facility] [address] [place] [address], [facility] [phone] * RICHARD DIAGNOSTIC BILATERAL DIGITAL [id number] (08/15/2017 [...] to Health Maintenance Insurance MEDICAID [place] [facility] Advance Directives * Full Code (Latest Code Status on File) Date Activated Date Inactivated Comments 03/10/2024 10:06 PM 03/19/2024 12:43 PM Care Teams Blood Coordinator Relationship Specialty Start Date End Date Yoel Watson MD [address] [place] [address] PCP - General Gastroenterology 01/20/25
== END 2025-07-20 13:47 | disposition home or self-care (01) ==
LOC: ANHAUDIO 13:48
PROVIDERS: PCP Emergency Medicine; Visit Provider Otolaryngology
DX: H90.3 Sensorineural hearing loss, bilateral (principal); H93.8X9 Other specified disorders of ear, unspecified ear; H92.01 Otalgia, right ear; R42 Dizziness and giddiness; H93.13 Tinnitus, bilateral; Z97.4 Presence of external hearing-aid; Z84.89 Family history of other specified conditions
CPT/HCPCS: 92557; 92567